=== PATIENT | female | born 1965 | race Caucasian/White ===

== ENCOUNTER 2017-09-18 19:38 | Inpatient (IN) | payer OTHER ==
--- NOTE | 2017-09-18 19:49 | PDOC ---
Rapid Medical Evaluation Medical Evaluation: 09/18/17 19:43 I have performed a brief in-person evaluation of this patient. The patient presents with a chief complaint of: hx DM, HTN, abd pain Pertinent physical exam findings: pain to R flank/abdomen x 1 month I have ordered the following: labs The patient will proceed to the ED for further evaluation. Discharge Disposition - Diagnosis Abdominal pain - Referrals Referrals: Evy Mendoza MD [Primary Care Provider] - - Patient Instructions - Post Discharge Activity
[2017-09-18 19:55] VITALS: BMI 29.2
--- NOTE | 2017-09-18 20:27 | PDOC ---
History of Present Illness - General History Source: Patient, Sibling Exam Limitations: No Limitations - History of Present Illness Initial Comments: 09/18/17 20:47 The patient is a 51 year old female, with a significant past medical history of hypertension, hyperlipidemia, diabetes, and chronic constipation, who presents to the emergency department with abdominal pain for approximately 1 month. The patient reports her pain is intermittent, diffuse, but worse at the right lower quadrant. She denies any associated nausea, vomiting, or diarrhea. Patient reports constipation, which is part of her baseline. Patient reports her last bowel movement was this morning, and describes it as "small dark latasha". Patient reports occasional blood in stool secondary to pushing when she is constipated. She reports occasional dysuria, but denies any hematuria, frequency , or urgency. She denies any recent fever, chills, cough, headache, or dizziness. She denies any chest pain, shortness of breath, diaphoresis, or palpitations. She denies any recent travel or sick contacts. Patient reports her last meal was this morning. As per sister, patient has lost a lot of weight over the past month. Allergies: NKDA Past Surgical History: section. Social History: Non smoker. No ETOH or recreational drug use. PCP: Dr. Garcia <Aditi Menjivar - Last Filed: 09/19/17 00:29> <Rosetta Gonzalez - Last Filed: 09/19/17 05:14> - General Chief Complaint: Pain Stated Complaint: ABD PAIN Time Seen by Provider: 09/18/17 19:54 Past History <Aditi Menjivar - Last Filed: 09/19/17 00:29> - Past Medical History COPD: No Diabetes: Yes GI Disorders: Yes (Constipation) HTN: Yes Hypercholesterolemia: Yes - Suicide/Smoking/Psychosocial Hx Smoking History: Never smoked Have you smoked in the past 12 months: No Information on smoking cessation initiated: No Hx Alcohol Use: No Drug/Substance Use Hx: No Substance Use Type: None <Rosetta Gonzalez - Last Filed: 09/19/17 05:14> - Past Medical History Allergies/Adverse Reactions: Allergies Allergy/AdvReac Type Severity Reaction Status Date / Time No Known Allergies Allergy Verified 09/18/17 19:50 Home Medications: Ambulatory Orders NK [No Known Home Medication] 09/18/17 Review of Systems - Review of Systems Able to Perform ROS?: Yes Comments:: 09/18/17 20:48 GENERAL/CONSTITUTIONAL: No fever or chills. No weakness. HEAD, EYES, EARS, NOSE AND THROAT: No change in vision. No ear pain or discharge. No sore throat. CARDIOVASCULAR: No chest pain or shortness of breath. RESPIRATORY: No cough, wheezing, or hemoptysis. GASTROINTESTINAL: +Abdominal pain, constipation. No nausea, vomiting, or diarrhea. GENITOURINARY: No dysuria, frequency, or change in urination. MUSCULOSKELETAL: No joint or muscle swelling or pain. No neck or back pain. SKIN: No rash NEUROLOGIC: No headache, vertigo, loss of consciousness, or change in strength/ sensation. ENDOCRINE: +Increased weightloss. No increased thirst. HEMATOLOGIC/LYMPHATIC: No anemia, easy bleeding, or history of blood clots. ALLERGIC/IMMUNOLOGIC: No hives or skin allergy. <Maggie Menjivaromilstraci - Last Filed: 09/19/17 00:29> *Physical Exam - Vital Signs Last Vital Signs Temp Pulse Resp BP Pulse Ox 98.0 F 93 H 18 167/96 99 09/18/17 19:50 09/18/17 19:50 09/18/17 19:50 09/18/17 19:50 09/18/17 19:50 - Physical Exam Comments: 09/18/17 20:50 GENERAL: Awake, alert, and fully oriented, in no acute distress HEAD: No signs of trauma EYES: PERRLA, EOMI, sclera anicteric, conjunctiva clear ENT: Auricles normal inspection, hearing grossly normal, nares patent, oropharynx clear without exudates. Moist mucosa NECK: Normal ROM, supple, no lymphadenopathy, JVD, or masses LUNGS: Breath sounds equal, clear to auscultation bilaterally. No wheezes, and no crackles HEART: Regular rate and rhythm, normal S1 and S2, no murmurs, rubs or gallops ABDOMEN: Soft, nontender, normoactive bowel sounds. No guarding, no rebound. No masses EXTREMITIES: Normal range of motion, no edema. No clubbing or cyanosis. No cords, erythema, or tenderness NEUROLOGICAL: Cranial nerves II through XII grossly intact. Normal speech, normal gait SKIN: +Slight Jaundice. Warm, Dry, normal turgor, no rashes or lesions noted. <OttoAditi - Last Filed: 09/19/17 00:29> - Vital Signs Last Vital Signs Temp Pulse Resp BP Pulse Ox 98.0 F 93 H 18 167/96 99 09/18/17 19:50 09/18/17 19:50 09/18/17 19:50 09/18/17 19:50 09/18/17 19:50 <Rosetta Gonzalez - Last Filed: 09/19/17 05:14> ED Treatment Course - LABORATORY CBC & Chemistry Diagram: 09/18/17 20:46 09/18/17 20:46 - RADIOLOGY Radiograph Interpretation: 09/19/17 00:22 EXAM: CT Abdomen and Pelvis INTERPRETED BY: Dr. Singer REVIEWED BY: Dr. Gonzalez IMPRESSION: Nonspecific enteritis and mesenteric adenitis. Cholelithiasis <MenjivarAditi - Last Filed: 09/19/17 00:29> - LABORATORY CBC & Chemistry Diagram: 09/18/17 20:46 09/18/17 20:46 <Rosetta Gonzalez - Last Filed: 09/19/17 05:14> Medical Decision Making - Medical Decision Making 09/19/17 00:27 Pt comes with on and off abd pain that has been ongoing for a month. Now with return of the pain since yesterday. Pain is deiffuse, but mainily right sided. Pt appears slight;y jaundiced, and she has anatoly discoloration of her lips which she says is normal for her. Pt states that she has been losing weight for the past month, and she has inability to eat due to the abdominal pain. CT scan demonstrates small bowel thickiening and mesenteric lymphadenopathy. Pt will be admitted for observation status to med/surg so that she can be evaluated by GI field operations supervisor. 09/19/17 03:31 Patient Name: JESSICA CARROLL THIS IS A PRELIMINARY REPORT FROM [facility] DATE OF SERVICE: 2017-09-18 22:48:48 IMAGES: 23 EXAM: TRANSVAGINAL ULTRASOUND US HISTORY: Right adnexal pain COMPARISON: None. FINDINGS: The uterus is retroverted measuring 7.9 cm in length. Endometrium is 3 mm which is normal. Right ovary measures 2.2 x 1.2 x 0.8 cm. Doppler imaging demonstrates positive vascular flow. The left ovary measures 2.3 x 1.2 x 1.4 cm. Doppler imaging demonstrates positive vascular flow. There is no adnexal mass There is a small amount of free fluid anterior to the uterus IMPRESSION: No ovarian torsion. Small amount of free fluid is nonspecific correlation with history and pelvic exam is recommended THIS DOCUMENT HAS BEEN ELECTRONICALLY SIGNED <Rosetta Gonzalez - Last Filed: 09/19/17 05:14> *DC/Admit/Observation/Transfer - Attestations Scribe Attestion: 09/18/17 20:50 Documentation prepared by Aditi Menjivar, acting as medical intern for oRsetta Gonzalez MD. <Aditi Menjivar - Last Filed: 09/19/17 00:29> - Discharge Dispostion Admit: Yes - Attestations Physician Attestion: 09/18/17 20:27 I, Dr. Rosetta Gonzalez, attest that this document has been prepared under my direction and personally reviewed by me in its entirety. I further attest, that it accurately reflects all work, treatment, procedures and medical decision -making performed by me. <Rosetta Gonzalez - Last Filed: 09/19/17 05:14> Diagnosis at time of Disposition: Abdominal pain, Weight loss, unintentional, Decreased appetite, Nonspecific mesenteric adenitis, Thickened small bowel, Hyperbilirubinemia, Alkaline phosphatase elevation - Discharge Dispostion Condition at time of disposition: Guarded - Referrals Referrals: Evy Mendoza MD [Primary Care Provider] - - Patient Instructions - Post Discharge Activity
[2017-09-18 21:09] LABS: BASO % 0.7 % (0-2.0); EOS % 2.3 % (0-4.5); HEMATOCRIT 44.4 % (32.4-45.2); HEMOGLOBIN 14.8 GM/dL (10.7-15.3); LYMPH % 55.6 % (8-40); MCH 28.6 pg (25.7-33.7); MCHC 33.5 g/dl (32.0-36.0); MEAN CELL VOLUME 85.3 fl (80-96); MONO % 4.9 % (3.8-10.2); NEUT % 36.5 % (42.8-82.8); PLATELET COUNT 254 K/MM3 (134-434); RDW 13.3 % (11.6-15.6); WHITE BLOOD COUNT 7.2 K/mm3 (4.0-10.0)
[2017-09-18 21:17] LABS: URINE APPEARANCE CLEAR; URINE BILIRUBIN NEGATIVE (NEGATIVE); URINE BLOOD 1+ (NEGATIVE); URINE COLOR YELLOW; URINE GLUCOSE (UA) 3+ (NEGATIVE); URINE KETONE TRACE (NEGATIVE); URINE LEUK ESTERASE NEGATIVE (NEGATIVE); URINE NITRITE NEGATIVE (NEGATIVE); URINE UROBILINOGEN NEGATIVE mg/dL (0.2-1.0)
[2017-09-18 21:23] LABS: URINE PROTEIN 1+ (NEGATIVE)
[2017-09-18 21:24] LABS: EPI CELLS RARE /HPF (FEW); URINE BACTERIA RARE /hpf (NONE SEEN); URINE HYALINE CAST 1 /lpf; URINE MUCUS FEW
[2017-09-18 21:31] LABS: ALBUMIN 4.4 g/dl (3.4-5.0); ANION GAP 8 (8-16); BILIRUBIN,TOTAL 1.1 mg/dL (0.2-1.0); BLOOD UREA NITROGEN 9 mg/dL (7-18); CALCIUM 9.3 mg/dL (8.5-10.1); CHLORIDE 101 mmol/L (98-107); CO2 25 mmol/L (21-32); CREATININE 0.7 mg/dL (0.55-1.02); GLUCOSE,RANDOM 289 mg/dL (74-106); POTASSIUM 3.9 mmol/L (3.5-5.1); SGOT/AST 16 U/L (15-37); SGPT/ALT 26 U/L (12-78); SODIUM 134 mmol/L (136-145); TOT PROT 8.3 g/dl (6.4-8.2)
[2017-09-18 21:32] LABS: ALK PHOS 173 U/L (45-117); INR 1.06 (0.82-1.09)
[2017-09-19] MEDS ORDERED: ACETAMINOPHEN 325 MG TABLET (FP) PO PRN (01:17)
[2017-09-19] MEDS ORDERED: SENNOSIDES 8.6MG TABLET (FP) PO PRN (01:17)
--- NOTE | 2017-09-19 01:28 | HP ---
CHIEF COMPLAINT: abdominal pain PCP: Dr. Matias HISTORY OF PRESENT ILLNESS: This is a 51 year old female with no known medical history presents to the emergency room with a dull mid epigastric pain that radiates to back that started yesterday and has progressively gotten worse, which provoked ER visit. She has chronic abdominal pain that she attributes to constipation and menstral cycle. She usually takes motrin for pain (chronically/intermittently), she has been taking 4-6 pills a day for the past two days. She denies fever, chills, nausea, vomiting, hematamesis, diarrhea, melena, urinary symptoms. Patient admits to some weight loss recently due to poor appetite. She had a half sister who at age 60 of colon CA. She has never had and endoscopy or colonoscopy. LMP Aug 31, spotting; lasting 2 months. ER course was notable for: (1)elevated alk phos; mild elevatd total bili; abdominal CT showing small bowel thickening; adenitits Recent Travel: no PAST MEDICAL HISTORY: no PAST SURGICAL HISTORY: no Social History: Smoking:no Alcohol:no Drugs: no Family History: DM; colon CA Allergies No Known Allergies Allergy (Verified 09/18/17 19:50) HOME MEDICATIONS: Home Medications Medication Instructions Recorded NK [No Known Home Medication] 09/18/17 REVIEW OF SYSTEMS CONSTITUTIONAL: positive: loss of appetite, weight change Absent: fever, chills, diaphoresis, generalized weakness, malaise, HEENT: Absent: rhinorrhea, nasal congestion, throat pain, throat swelling, difficulty swallowing, mouth swelling, ear pain, eye pain, visual changes CARDIOVASCULAR: Absent: chest pain, syncope, palpitations, irregular heart rate, lightheadedness , peripheral edema RESPIRATORY: Absent: cough, shortness of breath, dyspnea with exertion, orthopnea, wheezing, stridor, hemoptysis GASTROINTESTINAL: Positive:constipation; abdominal pain Absent: , nausea, vomiting, diarrhea, melena, hematochezia GENITOURINARY: Absent: dysuria, frequency, urgency, hesitancy, hematuria, flank pain, genital pain MUSCULOSKELETAL: Absent: myalgia, arthralgia, joint swelling, back pain, neck pain SKIN: Absent: rash, itching, pallor HEMATOLOGIC/IMMUNOLOGIC: Absent: easy bleeding, easy bruising, lymphadenopathy, frequent infections ENDOCRINE: Absent: unexplained weight gain, unexplained weight loss, heat intolerance, cold intolerance NEUROLOGIC: Absent: headache, focal weakness or paresthesias, dizziness, unsteady gait, seizure, mental status changes, bladder or bowel incontinence PSYCHIATRIC: Absent: anxiety, depression, suicidal or homicidal ideation, hallucinations. PHYSICAL EXAMINATION Vital Signs - 24 hr 09/18/17 19:50 Temperature 98.0 F Pulse Rate 93 H Respiratory 18 Rate Blood Pressure 167/96 O2 Sat by Pulse 99 Oximetry (%) GENERAL: Awake, alert, and fully oriented, in no acute distress. HEAD: Normal with no signs of trauma. EYES: Pupils equal, round and reactive to light, extraocular movements intact, sclera anicteric, conjunctiva clear. No lid lag. NECK: Normal range of motion, supple without lymphadenopathy, JVD, or masses. LUNGS: Breath sounds equal, clear to auscultation bilaterally. No wheezes, and no crackles. No accessory muscle use. HEART: Regular rate and rhythm, normal S1 and S2 without murmur, rub or gallop. ABDOMEN: Soft, tender mid epigastrum, not distended, normoactive bowel sounds, no guarding, no rebound, no masses. No hepatomegaly or splenomegaly. MUSCULOSKELETAL: Normal range of motion at all joints. No bony deformities or tenderness. No CVA tenderness. UPPER EXTREMITIES: 2+ pulses, warm, well-perfused. No cyanosis. No clubbing. No peripheral edema. LOWER EXTREMITIES: 2+ pulses, warm, well-perfused. No calf tenderness. No peripheral edema. NEUROLOGICAL: Cranial nerves II-XII intact. Normal speech. Normal gait. PSYCHIATRIC: Cooperative. Good eye contact. Appropriate mood and affect. SKIN: Warm, dry, normal turgor, no rashes or lesions noted, normal capillary refill. Laboratory Results - last 24 hr 09/18/17 09/18/17 09/18/17 20:46 20:46 20:46 WBC 7.2 RBC 5.20 Hgb 14.8 Hct 44.4 MCV 85.3 MCH 28.6 MCHC 33.5 RDW 13.3 Plt Count 254 MPV 9.0 Neutrophils % 36.5 L Lymphocytes % 55.6 H Monocytes % 4.9 Eosinophils % 2.3 Basophils % 0.7 PT with INR 12.00 H INR 1.06 Sodium Potassium Chloride Carbon Dioxide Anion Gap BUN Creatinine Creat Clearance w eGFR Random Glucose Calcium Total Bilirubin AST ALT Alkaline Phosphatase Total Protein Albumin Urine Color Yellow Urine Appearance Clear Urine pH 5.0 Ur Specific [place] 1.032 Urine Protein 1+ H Urine Glucose (UA) 3+ H Urine Ketones Trace H Urine Blood 1+ H Urine Nitrite Negative Urine Bilirubin Negative Urine Urobilinogen Negative Ur Leukocyte Esterase Negative Urine WBC (Auto) 3 Urine RBC (Auto) 3 Ur Epithelial Cells Rare Urine Bacteria Rare Hyaline Casts 1 Urine Mucus Few 09/18/17 20:46 WBC RBC Hgb Hct MCV MCH MCHC RDW Plt Count MPV Neutrophils % Lymphocytes % Monocytes % Eosinophils % Basophils % PT with INR INR Sodium 134 L Potassium 3.9 Chloride 101 Carbon Dioxide 25 Anion Gap 8 BUN 9 Creatinine 0.7 Creat Clearance w eGFR > 60 Random Glucose 289 H Calcium 9.3 Total Bilirubin 1.1 H AST 16 ALT 26 Alkaline Phosphatase 173 H Total Protein 8.3 H Albumin 4.4 Urine Color Urine Appearance Urine pH Ur Specific [place] Urine Protein Urine Glucose (UA) Urine Ketones Urine Blood Urine Nitrite Urine Bilirubin Urine Urobilinogen Ur Leukocyte Esterase Urine WBC (Auto) Urine RBC (Auto) Ur Epithelial Cells Urine Bacteria Hyaline Casts Urine Mucus ASSESSMENT/PLAN: This is a 51 year old female with no known medical history presenting with abdominal pain x 2day with wt loss; nsaid use; will admit for observation, pending GI eval for possible scope. Possible etiology as listed below. #abdominal pain may be secondary to gastritis vs ulcer (nsaid use) vs constipation vs gerd; r/o other etiology including Colon CA given family history /wt loss/age -abdominal CT with small bowel thickening and adenitis -IVF -PPI -heme occult -anti nausea med prn -stool softener -avoid NSAIDs -keep npo for now; pending GI rec for possible endoscopy/colonoscopy -f/u pelvic/vag US report; r/o RING SORTER etiology #mild elevation ofalkphos; with normal LFTs; making liver injury unlikely; possible from bone vs parathyroid; -will trend; if continues to rise will order more studies #total bili slightly elevated; could be sec to gallstones; will trend ; if continues will order direct/indirect #hyperglycemia; r/o DM -insulin SS -BGM achs check heomglobin a1c ; not on any DM meds #constipation: -stool softeners/mirolax Fluids: NS Electrolytes: wnl Diet: keep npo for now pending GI consult/scope VTE: scds GI ppl: protonix Case discussed with attending Dr. Nerissa Boyce-pgy2 Problem List - Problem (1) Abdominal pain Code(s): R10.9 - UNSPECIFIED ABDOMINAL PAIN (2) Alkaline phosphatase elevation Code(s): R74.8 - ABNORMAL LEVELS OF OTHER SERUM ENZYMES (3) Decreased appetite Code(s): R63.0 - ANOREXIA (4) Hyperbilirubinemia Code(s): E80.6 - OTHER DISORDERS OF BILIRUBIN METABOLISM (5) Nonspecific mesenteric adenitis Code(s): I88.0 - NONSPECIFIC MESENTERIC LYMPHADENITIS (6) Thickened small bowel Code(s): K63.9 - DISEASE OF INTESTINE, UNSPECIFIED Visit type - Emergency Visit Emergency Visit: Yes Care time: The patient presented to the Emergency Department on the above date and was hospitalized for further evaluation of their emergent condition. - New Patient This patient is new to me today: Yes Date on this admission: 09/19/17 - Critical Care Critical Care patient: No Hospitalist Screening - Colonoscopy Questionnaire Colonoscopy Questionnaire: Colonoscopy Questionnaire - Patient: 50 - 75 years old and never had a screening colonoscopy: Yes History of colon or rectal polyps, or CA: No History of IBD, Crohn's disease or UC: No History of abdominal radiation therapy as a child: No - Relative: 1 with colon or rectal CA, or polyps at age 60 or younger: Yes Colon or rectal CA diagnosed at age 45 or younger: Unknown Multiple relatives with colon or rectal CA: No - Outcome: Screening Result: Positive Screen
[2017-09-19] MEDS: SODIUM CHLORIDE 1,000 ML IV SCH ×3 (01:41→14:14)
[2017-09-19] MEDS: INSULIN SLIDING SCALE (NOVOLOG) 1 VIAL SQ SCH ×4 (06:42→22:24)
[2017-09-19] MEDS: POLYETHYLENE GLYCOL 3350 119 GM BTL PO SCH ×3 (10:35→21:53)
[2017-09-19] MEDS: PANTOPRAZOLE 40 MG TABLET (FP) PO SCH (10:36)
[2017-09-19] MEDS ORDERED: INSULIN (NOVOLOG) ASPART 100 UNITS/ML 10ML VIAL ONE (11:19)
--- NOTE | 2017-09-19 12:39 | CON.GI ---
Consult Consult Specialty:: Gastroenterology Referred by:: Dr. Fang Boyce Reason for Consultation:: Abd pain - History of Present Illness Chief Complaint: RUQ lateral pain x 1 month with 25 lbs weight loss History of Present Illness: 51F Liberian speaking is admitted for a constant lateral RUQ pain that is alleviated by eating and by defecation. She denies vomiting or loss of appetite but claims a 25 lbs. weight loss. Her nephew Marvin Snell served as historic interpreter. She denies loss of appetite and is hungry. Although she moves her bowels daily she has a sense of bloating and incomplete evacuation. Her [facility] has been advising a colonoscopy but she has been refractory to this. Her mother is a colon cancer survivor. - History Source History Provided By: Patient Limitations to Obtaining History: Language Barrier - Past Medical History Cardio/Vascular: Yes: HTN, Hyperlipdemia Gastrointestinal: Yes: Constipation Endocrine: Yes: Diabetes Mellitus - Past Surgical History Past Surgical History: Yes: - Alcohol/Substance Use Hx Alcohol Use: Yes (on holidays) - Smoking History Smoking history: Never smoked Have you smoked in the past 12 months: No - Social History Usual Living Arrangement: Alone ADL: Independent Occupation: not employed Place of : Other ([place]) Came to [place]year[place] age 44 History of Recent Travel: No Home Medications - Allergies Allergies/Adverse Reactions: Allergies Allergy/AdvReac Type Severity Reaction Status Date / Time No Known Allergies Allergy Verified 09/18/17 19:50 - Home Medications Home Medications: Ambulatory Orders Atorvastatin Ca [Lipitor] 40 mg PO HS 09/19/17 Insulin Glargine,Hum.rec.anlog [Basaglar Kwikpen U-100] 22 unit SQ BID 09/19/17 Losartan Potassium 25 mg PO DAILY 09/19/17 Metformin HCl [Glucophage] 1,000 mg PO BID 09/19/17 Family Disease History - Family Disease History Family Disease History: Diabetes: Mother (alive 89, colon cancer survivor), Heart Disease: Father ( [place] young age), Mother, CA: Mother Other Family History: aunt had ovarian cancer Review of Systems - Review of Systems Constitutional: reports: Unintentional Wgt. Loss Eyes: reports: No Symptoms HENT: reports: No Symptoms Cardiovascular: reports: No Symptoms Respiratory: reports: No Symptoms Gastrointestinal: reports: Abdominal Pain, Constipation Genitourinary: reports: No Symptoms Musculoskeletal: reports: No Symptoms Integumentary: reports: No Symptoms Neurological: reports: No Symptoms Endocrine: reports: No Symptoms Physical Exam-GI Vital Signs: Vital Signs Temperature 98 F 09/19/17 06:54 Pulse Rate 82 09/19/17 06:54 Respiratory Rate 20 09/19/17 06:54 Blood Pressure 134/75 09/19/17 06:54 O2 Sat by Pulse Oximetry (%) 97 09/19/17 06:23 Laboratory Tests 09/18/17 09/18/17 20:46 20:46 Hgb 14.8 BUN 9 Creatinine 0.7 Total Bilirubin 1.1 H AST 16 ALT 26 Alkaline Phosphatase 173 H Albumin 4.4 Constitutional: Yes: Well Nourished Eyes: Yes: Conjunctiva Clear HENT: Yes: Other (dusky interior lip rimming but nares are clear of black exudate) Neck: Yes: Supple Cardiovascular: Yes: Regular Rate and Rhythm Respiratory: Yes: CTA Bilaterally Gastrointestinal Inspection: Yes: Distention, Scars (healed Pfannensteil incision) ...Auscultate: Yes: Hypoactive Bowel Sounds ...Palpate: Yes: Other (RUQ and lateral lower subcostal tenderness) ...Percussion: Yes: Tympanitic ...Rectal Exam: Yes: Sphincter Tone Normal, Other (no stool in rectum) Extremities: Yes: WNL Edema: No Neurological: Yes: Alert Labs: CBC, BMP 09/18/17 20:46 09/18/17 20:46 INR, PTT INR 1.06 (0.82-1.09) 09/18/17 20:46 Imaging - Results Cat Scan: Report Reviewed (Kaden Suh Name: JESSICA CARROLL DEPARTMENT OF RADIOLOGY Phys: Rosetta Gonzalez MD : 1965 Age: 51 Sex: F [facility] Acct: [id number] [facility] Exam Date: 09/18/17 Status: [place] [address] Unit Number: [id number] EXAM#: TYPE/EXAM: RESULT: [id number] CT/ABDOMEN PELVIS CT WITH CONTR History: Abdominal pain CT Scan of abdomen and pelvis without oral but with IV contrast 94 cc Omnipaque 350 The liver, spleen, pancreas and adrenal glands are unremarkable. No gallstones are identified. There is no evidence of retroperitoneal lymphadenopathy or abdominal aortic aneurysm. A significant amount of retained stool is seen throughout colon. There is residual foodstuff seen throughout stomach. Nonspecific mild thickening of proximal small bowel mercado The urinary bladder and uterus are unremarkable. There is no evidence of bowel obstruction. There are no inflammatory changes of the appendix or colon. No fluid collections are identified. Impression: Possible proximal enteritis PRELIMINARY REPORT PROVIDED BY RADIOLOGIST LABORER DRIVER Reported By: Mamadou Dougherty MD 09/19/17 1140 Technologist: Sukumar Hou Transcribed Date/Time: 09/19/17 1140 Head Rigger: Mamadou Dougherty Printed Date/Time: By: Signed by: Mamadou Dougherty Signed on: 19-Sep-2017 11:42) Problem List - Problems (1) Abdominal pain Assessment/Plan: I believe that Jessica's pain is due to colon distension/fecal impaction. Given her weight loss, FH colon cancer and lack of stool in the rectum I am concerned that she may have an obstructing rectosigmoid neoplasm. I will start Miralax lavage and order a gastrograffin enema. Via her nephew I did tell her that she will most likely need a colonoscopy and that Dr Worley will return on Thursday and be able to discuss it with her after the GG enema. I asked him to notify her siblings of the need for colon cancer screening. Code(s): R10.9 - UNSPECIFIED ABDOMINAL PAIN (2) Fecal impaction of colon Code(s): K56.41 - FECAL IMPACTION (3) Diabetes Code(s): E11.9 - TYPE 2 DIABETES MELLITUS WITHOUT COMPLICATIONS (4) Family history of colon cancer in mother Code(s): Z80.0 - FAMILY HISTORY OF MALIGNANT NEOPLASM OF DIGESTIVE ORGANS (5) Hypertension Code(s): I10 - ESSENTIAL (PRIMARY) HYPERTENSION (6) Hyperlipidemia associated with type 2 diabetes mellitus Code(s): E11.69 - TYPE 2 DIABETES MELLITUS WITH OTHER SPECIFIED COMPLICATION; E78.5 - HYPERLIPIDEMIA, UNSPECIFIED (7) Weight loss, unintentional Code(s): R63.4 - ABNORMAL WEIGHT LOSS
--- NOTE | 2017-09-19 15:23 | HOSP ---
Subjective - Review of Symptoms Subjective: Pt evaluated at bedside with son present who acted as principal clerk Pain has resolved. Pain typically improves with eating. Last BM was a small hard amount yesterday morning. reports increase hunger over the past month however has had a 25lb weight loss. denies CP, SOB< fever, chills, N/V/C/D never had colonoscopy Current Medications Generic Name Dose Route Start Last Admin Trade Name Freq PRN Reason Stop Dose Admin Acetaminophen 650 mg 09/19/17 01:17 Tylenol - PO Q4H PRN MILD PAIN Sodium Chloride 1,000 mls @ 75 mls/hr 09/19/17 13:30 09/19/17 14:14 Normal Saline - IV 75 mls/hr ASDIR JOSSY Administration Insulin Aspart 1 vial 09/19/17 07:00 09/19/17 14:15 Novolog Vial Sliding Scale - SQ 8 units ACHS JOSSY Administration Protocol Pantoprazole Sodium 40 mg 09/19/17 10:00 09/19/17 10:36 Protonix - PO 40 mg DAILY JOSSY Administration Polyethylene Glycol 17 gm 09/19/17 10:00 09/19/17 10:35 Miralax (For Daily Use) - PO Not Given DAILY JOSSY Polyethylene Glycol 17 gm 09/19/17 14:00 09/19/17 14:13 Miralax (For Daily Use) - PO 17 grams TID JOSSY Administration Senna 2 tab 09/19/17 01:17 Senna - PO HS PRN CONSTIPATION Last Vital Signs Temp Pulse Resp BP Pulse Ox 98.7 F 68 20 120/70 97 09/19/17 14:38 09/19/17 14:38 09/19/17 14:38 09/19/17 14:38 09/19/17 06:23 General NAD CV S1 S2 RRR no murmur/rub/gallop Lungs CTA B/L no wheezing/rales/rhonchi Abdomen soft slightly distended nomroactive BS. obese Extremtiies no pedal edema CBCD WBC 7.2 K/mm3 (4.0-10.0) 09/18/17 20:46 RBC 5.20 M/mm3 (3.60-5.2) 09/18/17 20:46 Hgb 14.8 GM/dL (10.7-15.3) 09/18/17 20:46 Hct 44.4 % (32.4-45.2) 09/18/17 20:46 MCV 85.3 fl (80-96) 09/18/17 20:46 MCHC 33.5 g/dl (32.0-36.0) 09/18/17 20:46 RDW 13.3 % (11.6-15.6) 09/18/17 20:46 Plt Count 254 K/MM3 (134-434) 09/18/17 20:46 MPV 9.0 fl (7.5-11.1) 09/18/17 20:46 CMP Sodium 134 mmol/L (136-145) L 09/18/17 20:46 Potassium 3.9 mmol/L (3.5-5.1) 09/18/17 20:46 Chloride 101 mmol/L (98-107) 09/18/17 20:46 Carbon Dioxide 25 mmol/L (21-32) 09/18/17 20:46 Anion Gap 8 (8-16) 09/18/17 20:46 BUN 9 mg/dL (7-18) 09/18/17 20:46 Creatinine 0.7 mg/dL (0.55-1.02) 09/18/17 20:46 Creat Clearance w eGFR > 60 (>60) 09/18/17 20:46 Calcium 9.3 mg/dL (8.5-10.1) 09/18/17 20:46 Total Bilirubin 1.1 mg/dL (0.2-1.0) H 09/18/17 20:46 AST 16 U/L (15-37) 09/18/17 20:46 ALT 26 U/L (12-78) 09/18/17 20:46 Alkaline Phosphatase 173 U/L (45-117) H 09/18/17 20:46 Total Protein 8.3 g/dl (6.4-8.2) H 09/18/17 20:46 Albumin 4.4 g/dl (3.4-5.0) 09/18/17 20:46 A/P 51 yo F wtih no PMH but family hx significant for colon ca present wtih abdominal pain, distention and weight loss 1. Abdominal pain- +fecal retention seen on CT scan. evalauted by GI started on clear liquids and miralax. Plan for barium enema to further evaluate for malignancy. plan for eventual colonosocpy. f/u [facility] 2. case d/w son present at bedside. all questions answered. Physical Examination Vital Signs: Vital Signs Temperature 98.7 F 09/19/17 14:38 Pulse Rate 68 09/19/17 14:38 Respiratory Rate 20 09/19/17 14:38 Blood Pressure 120/70 09/19/17 14:38 O2 Sat by Pulse Oximetry (%) 97 09/19/17 06:23 Labs: CBC, BMP 09/18/17 20:46 09/18/17 20:46
[2017-09-20] MEDS: INSULIN SLIDING SCALE (NOVOLOG) 1 VIAL SQ SCH ×4 (06:06→21:33)
[2017-09-20] MEDS: POLYETHYLENE GLYCOL 3350 119 GM BTL PO SCH ×4 (06:07→21:36)
[2017-09-20 07:47] LABS: BASO % 0.5 % (0-2.0); EOS % 3.6 % (0-4.5); HEMATOCRIT 40.3 % (32.4-45.2); HEMOGLOBIN 13.2 GM/dL (10.7-15.3); LYMPH % 44.5 % (8-40); MCH 27.9 pg (25.7-33.7); MCHC 32.7 g/dl (32.0-36.0); MEAN CELL VOLUME 85.1 fl (80-96); MEAN PLT VOLUME 8.7 fl (7.5-11.1); MONO % 4.5 % (3.8-10.2); NEUT % 46.9 % (42.8-82.8); PLATELET COUNT 215 K/MM3 (134-434); RBC 4.73 M/mm3 (3.60-5.2); RDW 13.2 % (11.6-15.6); WHITE BLOOD COUNT 5.8 K/mm3 (4.0-10.0)
[2017-09-20 07:53] LABS: INR 1.15 (0.82-1.09)
[2017-09-20 08:11] LABS: CHLORIDE 107 mmol/L (98-107); POTASSIUM 3.9 mmol/L (3.5-5.1); SODIUM 141 mmol/L (136-145)
[2017-09-20 08:20] LABS: ALBUMIN 3.3 g/dl (3.4-5.0); ALK PHOS 108 U/L (45-117); ANION GAP 8 (8-16); BILIRUBIN,TOTAL 1.4 mg/dL (0.2-1.0); BLOOD UREA NITROGEN 8 mg/dL (7-18); CALCIUM 8.4 mg/dL (8.5-10.1); CO2 26 mmol/L (21-32); CREATININE 0.5 mg/dL (0.55-1.02); GLUCOSE,RANDOM 153 mg/dL (74-106); PHOSPHOROUS 4.3 mg/dL (2.5-4.9); SGOT/AST 21 U/L (15-37); SGPT/ALT 24 U/L (12-78); TOT PROT 6.4 g/dl (6.4-8.2)
--- NOTE | 2017-09-20 09:42 | PN ---
Teaching Attending Note Name of Resident: Enrrique Toney ATTENDING PHYSICIAN STATEMENT I saw and evaluated the patient. I reviewed the resident's note and discussed the case with the resident. I agree with the resident's findings and plan as documented. SUBJECTIVE:states abdominal pain has improved. has 1 very large BM yesterday and a small one prior to bedtime. denies CP, SOB, fever, chills, N/V/ OBJECTIVE: Last Vital Signs Temp Pulse Resp BP Pulse Ox 97.8 F 76 18 109/63 98 09/20/17 05:21 09/20/17 05:21 09/20/17 05:21 09/20/17 05:21 09/20/17 01:00 General NAD Abdomen soft RLQ tenderness no rebound or guarding normoactive BS ASSESSMENT AND PLAN: 51 yo F wtih no PMH but family hx significant for colon ca present wtih abdominal pain, distention and weight loss 1. Abdominal pain- +fecal retention seen on CT scan. started on stool softeners and miralax. cont to monitor BM. tolerating clear liquid diet. plan for barium enema. GI on board 2. DM- uncontrolled. A1c 12.6. claims she is taking medications but reports 150' s BGM at home. concerned meter may be inaccurate. was taking insulin at home ( not on home med list) 22 units BID. will start 10 BID for now as eating minimal. titrate to optimize control. dietary eval 3. HTN- controlled. cont to hold home medications. 4. DVT ppx- start hep sq 5. case d/w sister present at bedside. all questions answered. verbalized understanding and agreement with plan.
[2017-09-20] MEDS: PANTOPRAZOLE 40 MG TABLET (FP) PO SCH (10:29)
[2017-09-20] MEDS ORDERED: INSULIN (NOVOLOG) ASPART 100 UNITS/ML 10ML VIAL ONE ×2 (12:30→16:58)
--- NOTE | 2017-09-20 13:54 | PN ---
Physical Exam: SUBJECTIVE: Patient seen and examined at bedside. No overnight events. No new complaints. States she had a small hard BM this morning. NO blood.abdominal pain is better but no resolved. Denies CP,LENZ, SOB, nausea or vomiting. OBJECTIVE: Vital Signs Period Temp Pulse Resp BP Sys/Weaver Pulse Ox Last 24 Hr 97.5 F-98.7 F 62-78 18-20 109-128/57-77 98-98 GENERAL:AAOx3, NAD LUNGS: CTAB, No wheezing or rales. HEART: RRR, S1, S2 without murmur, rub or gallop. ABDOMEN: Soft, diffuse right sided tenderness. hard stools palpated in RLQ, nondistended, normoactive bowel sounds, no guarding, no rebound, no hepatosplenomegaly, no masses. EXTREMITIES: 2+ pulses, warm, well-perfused, no edema. Laboratory Results - last 24 hr 09/19/17 09/19/17 09/20/17 17:06 21:52 06:00 WBC 5.8 RBC 4.73 Hgb 13.2 D Hct 40.3 MCV 85.1 MCH 27.9 MCHC 32.7 RDW 13.2 Plt Count 215 MPV 8.7 Neutrophils % 46.9 D Lymphocytes % 44.5 H Monocytes % 4.5 Eosinophils % 3.6 Basophils % 0.5 PT with INR INR Sodium Potassium Chloride Carbon Dioxide Anion Gap BUN Creatinine Creat Clearance w eGFR POC Glucometer 306 124 Random Glucose Hemoglobin A1c % Calcium Phosphorus Magnesium Total Bilirubin AST ALT Alkaline Phosphatase C-Reactive Protein Total Protein Albumin 09/20/17 09/20/17 09/20/17 06:00 06:00 06:00 WBC RBC Hgb Hct MCV MCH MCHC RDW Plt Count MPV Neutrophils % Lymphocytes % Monocytes % Eosinophils % Basophils % PT with INR 13.00 H INR 1.15 H Sodium 141 Potassium 3.9 Chloride 107 Carbon Dioxide 26 Anion Gap 8 BUN 8 Creatinine 0.5 L Creat Clearance w eGFR > 60 POC Glucometer Random Glucose 153 H Hemoglobin A1c % Calcium 8.4 L Phosphorus 4.3 Magnesium 2.0 Total Bilirubin 1.4 H D AST 21 ALT 24 Alkaline Phosphatase 108 C-Reactive Protein < 0.3 Total Protein 6.4 Albumin 3.3 L 09/20/17 09/20/17 09/20/17 06:05 08:30 11:47 WBC RBC Hgb Hct MCV MCH MCHC RDW Plt Count MPV Neutrophils % Lymphocytes % Monocytes % Eosinophils % Basophils % PT with INR INR Sodium Potassium Chloride Carbon Dioxide Anion Gap BUN Creatinine Creat Clearance w eGFR POC Glucometer 155 313 Random Glucose Hemoglobin A1c % 12.6 H Calcium Phosphorus Magnesium Total Bilirubin AST ALT Alkaline Phosphatase C-Reactive Protein Total Protein Albumin Active Medications Generic Name Dose Route Start Last Admin Trade Name Freq PRN Reason Stop Dose Admin Acetaminophen 650 mg 09/19/17 01:17 09/20/17 10:34 Tylenol - PO 650 mg Q4H PRN Administration MILD PAIN Docusate Sodium 300 mg 09/20/17 22:00 Colace - PO HS JOSSY Heparin Sodium (Porcine) 5,000 unit 09/20/17 22:00 Heparin - SQ BID JOSSY Sodium Chloride 1,000 mls @ 75 mls/hr 09/19/17 13:30 09/19/17 14:14 Normal Saline - IV 75 mls/hr ASDIR JOSSY Administration Insulin Aspart 1 vial 09/19/17 07:00 09/20/17 12:55 Novolog Vial Sliding Scale - SQ 8 units ACHS JOSSY Administration Protocol Pantoprazole Sodium 40 mg 09/19/17 10:00 09/20/17 10:29 Protonix - PO 40 mg DAILY JOSSY Administration Polyethylene Glycol 17 gm 09/19/17 10:00 09/20/17 10:29 Miralax (For Daily Use) - PO 17 grams DAILY JOSSY Administration Polyethylene Glycol 17 gm 09/19/17 14:00 09/20/17 12:59 Miralax (For Daily Use) - PO 17 grams TID JOSSY Administration Senna 2 tab 09/20/17 22:00 Senna - PO HS JOSSY ASSESSMENT/PLAN: This is a 51 year old female with no known medical history presenting with abdominal pain x 2day with wt loss admitted for severe fecal retention and intractable abdominal pain. 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 * Docusate Sodium (Colace -) 300 mg PO HS * Sodium Chloride (Normal Saline -) 1,000 mls @ 75 mls/hr IV ASDIR * Pantoprazole Sodium (Protonix -) 40 mg PO DAILY * Polyethylene Glycol (Miralax (For Daily Use) -) 17 gm PO TID * Senna (Senna -) 2 tab PO HS JOSSY (2) Fecal impaction of colon Assessment/Plan: concern for possible malignancy given family history of Colon CA. * Gastrografin enema tomorrow. * Needs a colonoscopy prior to discharge. * Gastroenterology consult appreciated. (3) Diabetes Assessment/Plan: uncontrolled * ADA diet * ISS ACHS * BGM ACHS * HgbA1C- 12.6 (4) Hypertension Assessment/Plan: BP has been wnl * BP meds on hold for now. (5) DVT prophylaxis Assessment/Plan: heparin sq TID Visit type - Emergency Visit Emergency Visit: Yes ED Registration Date: 09/19/17 Care time: The patient presented to the Emergency Department on the above date and was hospitalized for further evaluation of their emergent condition. - New Patient This patient is new to me today: Yes Date on this admission: 09/20/17 - Critical Care Critical Care patient: No - Discharge Referral Referred to [facility] Med P.C.: No
--- NOTE | 2017-09-20 15:22 | PN ---
GI Progress Note Subjective: GI NOte ( covering Dr Worley) : Passing gas but no BMs yet. Pain is reduced - Objective Vital Signs: Vital Signs Temperature 97.8 F 09/20/17 15:08 Pulse Rate 78 09/20/17 15:08 Respiratory Rate 20 09/20/17 15:08 Blood Pressure 121/77 09/20/17 15:08 O2 Sat by Pulse Oximetry (%) 98 09/20/17 09:00 Constitutional: No Distress Gastrointestinal Inspection: Yes: Other (less distended) ...Auscultate: Yes: Hypoactive Bowel Sounds ...Palpate: Yes: Soft, Other (nontender) Labs: CBC, BMP 09/20/17 06:00 09/20/17 06:00 INR, PTT INR 1.15 (0.82-1.09) H 09/20/17 06:00 Assessment/Plan Fecal impaction Need to exclude obstructing colon cancer For GG enema tomorrow Dr Worley will return tomorrow and assume care for this patient. Problem List - Problems (1) Abdominal pain Code(s): R10.9 - UNSPECIFIED ABDOMINAL PAIN (2) Fecal impaction of colon Code(s): K56.41 - FECAL IMPACTION (3) Diabetes Code(s): E11.9 - TYPE 2 DIABETES MELLITUS WITHOUT COMPLICATIONS (4) Family history of colon cancer in mother Code(s): Z80.0 - FAMILY HISTORY OF MALIGNANT NEOPLASM OF DIGESTIVE ORGANS (5) Hypertension Code(s): I10 - ESSENTIAL (PRIMARY) HYPERTENSION (6) Hyperlipidemia associated with type 2 diabetes mellitus Code(s): E11.69 - TYPE 2 DIABETES MELLITUS WITH OTHER SPECIFIED COMPLICATION; E78.5 - HYPERLIPIDEMIA, UNSPECIFIED (7) Weight loss, unintentional Code(s): R63.4 - ABNORMAL WEIGHT LOSS
[2017-09-20] MEDS: SODIUM CHLORIDE 1,000 ML IV SCH (17:02)
[2017-09-20] MEDS: INSULIN DETEMIR 100 UNITS/ML MDV SQ SCH (17:02)
[2017-09-20] MEDS: DOCUSATE SODIUM 100 MG CAPSULE (FP) PO SCH (21:33)
[2017-09-20] MEDS: SENNOSIDES 8.6MG TABLET (FP) PO SCH (21:33)
[2017-09-20] MEDS: HEPARIN NA (PORCINE) 5,000 UNITS/ML 1ML VIAL SQ SCH (21:36)
[2017-09-21] MEDS: SODIUM CHLORIDE 1,000 ML IV SCH ×2 (06:21→17:15)
[2017-09-21] MEDS: INSULIN SLIDING SCALE (NOVOLOG) 1 VIAL SQ SCH ×4 (06:22→21:47)
[2017-09-21] MEDS: POLYETHYLENE GLYCOL 3350 119 GM BTL PO SCH ×4 (06:22→21:46)
[2017-09-21] MEDS: INSULIN DETEMIR 100 UNITS/ML MDV SQ SCH ×2 (06:24→16:58)
[2017-09-21 08:03] LABS: BASO % 0.5 % (0-2.0); HEMATOCRIT 44.8 % (32.4-45.2); HEMOGLOBIN 14.5 GM/dL (10.7-15.3); LYMPH % 50.3 % (8-40); MCHC 32.4 g/dl (32.0-36.0); MEAN CELL VOLUME 86.3 fl (80-96); MEAN PLT VOLUME 8.7 fl (7.5-11.1); MONO % 4.8 % (3.8-10.2); NEUT % 41.4 % (42.8-82.8); PLATELET COUNT 268 K/MM3 (134-434); RBC 5.19 M/mm3 (3.60-5.2); RDW 13.5 % (11.6-15.6); WHITE BLOOD COUNT 7.3 K/mm3 (4.0-10.0)
[2017-09-21 08:34] LABS: ALBUMIN 3.8 g/dl (3.4-5.0); ANION GAP 12 (8-16); BLOOD UREA NITROGEN 6 mg/dL (7-18); CALCIUM 9.5 mg/dL (8.5-10.1); CHLORIDE 102 mmol/L (98-107); CO2 27 mmol/L (21-32); GLUCOSE,RANDOM 125 mg/dL (74-106); POTASSIUM 3.8 mmol/L (3.5-5.1); SODIUM 141 mmol/L (136-145)
[2017-09-21 08:37] LABS: ALK PHOS 126 U/L (45-117); BILIRUBIN,TOTAL 1.3 mg/dL (0.2-1.0); CREATININE 0.6 mg/dL (0.55-1.02); SGOT/AST 22 U/L (15-37); SGPT/ALT 33 U/L (12-78); TOT PROT 7.8 g/dl (6.4-8.2)
[2017-09-21] MEDS: HEPARIN NA (PORCINE) 5,000 UNITS/ML 1ML VIAL SQ SCH ×2 (09:53→21:47)
[2017-09-21] MEDS: PANTOPRAZOLE 40 MG TABLET (FP) PO SCH (09:53)
[2017-09-21] MEDS ORDERED: INSULIN (NOVOLOG) ASPART 100 UNITS/ML 10ML VIAL ONE (11:47)
--- NOTE | 2017-09-21 13:38 | PN ---
Progress Note, Physician History of Present Illness: Chart reviewed. No events overnight. Ambulating. Comfortable. Reports multiple bms. Requires repairer pump. - Current Medication List Current Medications: Active Medications Acetaminophen (Tylenol -) 650 mg PO Q4H PRN PRN Reason: MILD PAIN Last Admin: 09/20/17 10:34 Dose: 650 mg Docusate Sodium (Colace -) 300 mg PO HS [facility] Last Admin: 09/20/17 21:33 Dose: 300 mg Heparin Sodium (Porcine) (Heparin -) 5,000 unit SQ BID [facility] Last Admin: 09/21/17 09:53 Dose: 5,000 unit Sodium Chloride (Normal Saline -) 1,000 mls @ 75 mls/hr IV ASDIR [facility] Last Admin: 09/21/17 06:21 Dose: 75 mls/hr Insulin Aspart (Novolog Vial Sliding Scale -) 1 vial SQ ACHS [facility] PRN Reason: Protocol Last Admin: 09/21/17 11:51 Dose: 4 units Insulin Detemir (Levemir Vial) 10 units SQ BIDAC [facility] Last Admin: 09/21/17 06:24 Dose: 10 units Pantoprazole Sodium (Protonix -) 40 mg PO DAILY [facility] Last Admin: 09/21/17 09:53 Dose: 40 mg Polyethylene Glycol (Miralax (For Daily Use) -) 17 gm PO DAILY [facility] Last Admin: 09/21/17 09:53 Dose: 17 grams Polyethylene Glycol (Miralax (For Daily Use) -) 17 gm PO TID [facility] Last Admin: 09/21/17 06:22 Dose: 17 grams Senna (Senna -) 2 tab PO HS [facility] Last Admin: 09/20/17 21:33 Dose: 2 tab - Objective Vital Signs: Vital Signs Temperature 98 F 09/21/17 10:00 Pulse Rate 67 09/21/17 10:00 Respiratory Rate 18 09/21/17 10:00 Blood Pressure 123/81 09/21/17 10:00 O2 Sat by Pulse Oximetry (%) 99 09/21/17 09:00 Constitutional: Yes: Well Nourished, No Distress, Calm Eyes: Yes: Conjunctiva Clear HENT: Yes: Atraumatic Neck: Yes: Supple Cardiovascular: Yes: Regular Rate and Rhythm Respiratory: Yes: Regular Gastrointestinal: Yes: Soft, Distention. No: Tenderness, Tenderness, Epigastrium, Tenderness, Rebound, Vomiting Neurological: Yes: Alert Labs: CBC, BMP 09/21/17 06:30 09/21/17 08:15 INR, PTT INR 1.15 (0.82-1.09) H 09/20/17 06:00 CBCD WBC 7.3 K/mm3 (4.0-10.0) 09/21/17 06:30 RBC 5.19 M/mm3 (3.60-5.2) 09/21/17 06:30 Hgb 14.5 GM/dL (10.7-15.3) 09/21/17 06:30 Hct 44.8 % (32.4-45.2) 09/21/17 06:30 MCV 86.3 fl (80-96) 09/21/17 06:30 MCHC 32.4 g/dl (32.0-36.0) 09/21/17 06:30 RDW 13.5 % (11.6-15.6) 09/21/17 06:30 Plt Count 268 K/MM3 (134-434) D 09/21/17 06:30 MPV 8.7 fl (7.5-11.1) 09/21/17 06:30 CMP Sodium 141 mmol/L (136-145) 09/21/17 08:15 Potassium 3.8 mmol/L (3.5-5.1) 09/21/17 08:15 Chloride 102 mmol/L (98-107) 09/21/17 08:15 Carbon Dioxide 27 mmol/L (21-32) 09/21/17 08:15 Anion Gap 12 (8-16) 09/21/17 08:15 BUN 6 mg/dL (7-18) L 09/21/17 08:15 Creatinine 0.6 mg/dL (0.55-1.02) 09/21/17 08:15 Creat Clearance w eGFR > 60 (>60) 09/21/17 08:15 Calcium 9.5 mg/dL (8.5-10.1) 09/21/17 08:15 Total Bilirubin 1.3 mg/dL (0.2-1.0) H 09/21/17 08:15 AST 22 U/L (15-37) 09/21/17 08:15 ALT 33 U/L (12-78) 09/21/17 08:15 Alkaline Phosphatase 126 U/L (45-117) H 09/21/17 08:15 Total Protein 7.8 g/dl (6.4-8.2) 09/21/17 08:15 Albumin 3.8 g/dl (3.4-5.0) 09/21/17 08:15 Problem List - Problems (1) Abdominal pain Code(s): R10.9 - UNSPECIFIED ABDOMINAL PAIN Qualifiers: Abdominal location: right lower quadrant Qualified Code(s): R10.31 - Right lower quadrant pain (2) Family history of colon cancer in mother Code(s): Z80.0 - FAMILY HISTORY OF MALIGNANT NEOPLASM OF DIGESTIVE ORGANS (3) Fecal impaction of colon Code(s): K56.41 - FECAL IMPACTION Assessment/Plan Colonoscopy is planned for . Continue current management Clear liquid diet today and tomorrow
[2017-09-21] MEDS ORDERED: PEG 3350/NA SULF BICARB CL/KCL 4000 ML SOLN.RECON PO ONE (14:00)
[2017-09-21] MEDS ORDERED: BISACODYL 5 MG TABLET.DR (FP) PO ONE (14:00)
--- NOTE | 2017-09-21 15:13 | PN ---
Teaching Attending Note Name of Resident: Rodrick Tyson ATTENDING PHYSICIAN STATEMENT I saw and evaluated the patient. I reviewed the resident's note and discussed the case with the resident. I agree with the resident's findings and plan as documented. SUBJECTIVE:abdominal pain resolved. had multiple BM yesterday. denies PC, SOB, fever, chills, N/V/C/D OBJECTIVE: Last Vital Signs Temp Pulse Resp BP Pulse Ox 98 F 67 18 123/81 99 09/21/17 10:09/21/17 10:09/21/17 10:00 09/21/17 10:09/21/17 09:00 General NAD Abdomen soft NT/ND no rebound or guarding normoactive BS ASSESSMENT AND PLAN: 51 yo F wtih no PMH but family hx significant for colon ca present wtih abdominal pain, distention and weight loss 1. Abdominal pain- +fecal retention seen on CT scan. multiple soft BM. tolerating liquid diet. plan for barium enema today. likely colonoscopy pending what is seen. cont laxatives/stool softeners. GI on board 2. DM- improved. on 10 units BID as only on liquids at this time. titrate up as needed. dietary eval 3. HTN- controlled. cont to hold home medications. 4. DVT ppx-hep sq
--- NOTE | 2017-09-21 17:32 | PN ---
Physical Exam: SUBJECTIVE: Patient seen and examined No acute events overnight. Pt reports decreased abdominal pain, nausea, and diarrhea. OBJECTIVE: Vital Signs Period Temp Pulse Resp BP Sys/Weaver Pulse Ox Last 24 Hr 97 F-98.6 F 55-71 18-20 122-125/61-81 99-99 GENERAL: middle aged female, awake, alert, and fully oriented, in no acute distress. HEENT: NC, AT LUNGS: Breath sounds equal, clear to auscultation bilaterally, no wheezes, no crackles, no accessory muscle use. HEART: Regular rate and rhythm, S1, S2 without murmur, rub or gallop. ABDOMEN: mildly distended, soft, moderately tender in RLQ EXTREMITIES: 2+ pulses, warm, well-perfused, no edema. NEUROLOGICAL: Cranial nerves II through XII grossly intact. Normal speech, gait not observed. Laboratory Results - last 24 hr 09/20/17 09/20/17 09/21/17 17:01 21:32 06:19 WBC RBC Hgb Hct MCV MCH MCHC RDW Plt Count MPV Neutrophils % Lymphocytes % Monocytes % Eosinophils % Basophils % Sodium Potassium Chloride Carbon Dioxide Anion Gap BUN Creatinine Creat Clearance w eGFR POC Glucometer 217 206 128 Random Glucose Calcium Total Bilirubin AST ALT Alkaline Phosphatase Total Protein Albumin 09/21/17 09/21/17 09/21/17 06:30 08:15 11:35 WBC 7.3 RBC 5.19 Hgb 14.5 Hct 44.8 MCV 86.3 MCH 28.0 MCHC 32.4 RDW 13.5 Plt Count 268 D MPV 8.7 Neutrophils % 41.4 L Lymphocytes % 50.3 H Monocytes % 4.8 Eosinophils % 3.0 Basophils % 0.5 Sodium 141 Potassium 3.8 Chloride 102 Carbon Dioxide 27 Anion Gap 12 BUN 6 L Creatinine 0.6 Creat Clearance w eGFR > 60 POC Glucometer 231 Random Glucose 125 H Calcium 9.5 Total Bilirubin 1.3 H AST 22 ALT 33 Alkaline Phosphatase 126 H Total Protein 7.8 Albumin 3.8 Active Medications Generic Name Dose Route Start Last Admin Trade Name Freq PRN Reason Stop Dose Admin Acetaminophen 650 mg 09/19/17 01:17 09/20/17 10:34 Tylenol - PO 650 mg Q4H PRN Administration MILD PAIN Docusate Sodium 300 mg 09/20/17 22:00 09/20/17 21:33 Colace - PO 300 mg HS JOSSY Administration Heparin Sodium (Porcine) 5,000 unit 09/20/17 22:00 09/21/17 09:53 Heparin - SQ 5,000 unit BID JOSSY Administration Sodium Chloride 1,000 mls @ 75 mls/hr 09/19/17 13:30 09/21/17 17:15 Normal Saline - IV Not Given ASDIR JOSSY Insulin Aspart 1 vial 09/19/17 07:00 09/21/17 11:51 Novolog Vial Sliding Scale - SQ 4 units ACHS JOSSY Administration Protocol Insulin Detemir 10 units 09/20/17 16:30 09/21/17 16:58 Levemir Vial SQ 10 units BIDAC JOSSY Administration Pantoprazole Sodium 40 mg 09/19/17 10:00 09/21/17 09:53 Protonix - PO 40 mg DAILY JOSSY Administration Polyethylene Glycol 17 gm 09/19/17 10:00 09/21/17 09:53 Miralax (For Daily Use) - PO 17 grams DAILY JOSSY Administration Polyethylene Glycol 17 gm 09/19/17 14:00 09/21/17 15:30 Miralax (For Daily Use) - PO 17 grams TID JOSSY Administration Senna 2 tab 09/20/17 22:00 09/20/17 21:33 Senna - PO 2 tab HS JOSSY Administration ASSESSMENT/PLAN: 51F w/ no PMH but family hx of colon ca who presented with abdominal pain, distention and weight loss. #Abdominal pain/weight loss -2/2 possible colonic mass. +fecal retention on CT -barium enema done today. f/u report. -likely colonoscopy pending what is seen -cont laxatives/stool softeners -GI on board, recs appreciated. plan for colonoscopy on thursday -f/u [facility] #DM -a1c of 12.6 -on levemir 10 units BID as only on liquids at this time -required 18U of ISS -titrate up as needed -dietary eval -ISS, BGM ACHS #HTN - controlled - cont to hold home medications. #FEN/ppx -NS @ 75 -electrolytes wnl -clear liquid diet -protonix -heparin 5000U TID Case discussed with attending, Dr. Bey. -Rodrick Tyson MD PGY1 Visit type - Emergency Visit Emergency Visit: Yes ED Registration Date: 09/19/17 Care time: The patient presented to the Emergency Department on the above date and was hospitalized for further evaluation of their emergent condition. - New Patient This patient is new to me today: No - Critical Care Critical Care patient: No
[2017-09-21] MEDS: DOCUSATE SODIUM 100 MG CAPSULE (FP) PO SCH (21:46)
[2017-09-21] MEDS: SENNOSIDES 8.6MG TABLET (FP) PO SCH (21:47)
[2017-09-22] MEDS: INSULIN SLIDING SCALE (NOVOLOG) 1 VIAL SQ SCH ×4 (06:32→21:36)
[2017-09-22] MEDS: POLYETHYLENE GLYCOL 3350 119 GM BTL PO SCH ×5 (06:32→21:46)
[2017-09-22] MEDS: INSULIN DETEMIR 100 UNITS/ML MDV SQ SCH ×2 (06:55→17:16)
[2017-09-22] MEDS ORDERED: INSULIN (NOVOLOG) ASPART 100 UNITS/ML 10ML VIAL ONE (07:31)
[2017-09-22 07:36] LABS: BASO % 0.5 % (0-2.0); HEMATOCRIT 45.5 % (32.4-45.2); HEMOGLOBIN 14.7 GM/dL (10.7-15.3); LYMPH % 46.6 % (8-40); MCH 27.8 pg (25.7-33.7); MCHC 32.3 g/dl (32.0-36.0); MEAN CELL VOLUME 86.1 fl (80-96); MEAN PLT VOLUME 8.3 fl (7.5-11.1); MONO % 4.2 % (3.8-10.2); NEUT % 46.7 % (42.8-82.8); PLATELET COUNT 248 K/MM3 (134-434); RBC 5.28 M/mm3 (3.60-5.2); RDW 13.5 % (11.6-15.6); WHITE BLOOD COUNT 8.1 K/mm3 (4.0-10.0)
[2017-09-22 08:03] LABS: ALBUMIN 3.8 g/dl (3.4-5.0); ALK PHOS 118 U/L (45-117); ANION GAP 11 (8-16); BILIRUBIN,TOTAL 1.1 mg/dL (0.2-1.0); BLOOD UREA NITROGEN 4 mg/dL (7-18); CALCIUM 9.6 mg/dL (8.5-10.1); CHLORIDE 103 mmol/L (98-107); CO2 28 mmol/L (21-32); CREATININE 0.6 mg/dL (0.55-1.02); GLUCOSE,RANDOM 116 mg/dL (74-106); POTASSIUM 3.6 mmol/L (3.5-5.1); SGOT/AST 19 U/L (15-37); SGPT/ALT 25 U/L (12-78); SODIUM 142 mmol/L (136-145); TOT PROT 7.4 g/dl (6.4-8.2)
--- NOTE | 2017-09-22 08:22 | PN ---
<Rodrick Tyson - Last Filed: 09/22/17 14:19> Physical Exam: SUBJECTIVE: Patient seen and examined Barium enema yesterday showed diffuse colonic fecal retention, but no masses. No acute events overnight. This am, pt endorses nausea and several episodes of diarrhea, and a headache. OBJECTIVE: Vital Signs Period Temp Pulse Resp BP Sys/Weaver Pulse Ox Last 24 Hr 97.5 F-98.6 F 54-71 18-18 104-131/56-81 99-99 GENERAL: middle aged female, awake, alert, and fully oriented, in no acute distress. HEENT: NC, AT LUNGS: Breath sounds equal, clear to auscultation bilaterally, no wheezes, no crackles, no accessory muscle use. HEART: Regular rate and rhythm, S1, S2 without murmur, rub or gallop. ABDOMEN: mildly distended, soft, no tenderness EXTREMITIES: 2+ pulses, warm, well-perfused, no edema. NEUROLOGICAL: Cranial nerves II through XII grossly intact. Normal speech, gait not observed. Laboratory Results - last 24 hr 09/20/17 09/21/17 09/21/17 06:00 08:15 11:35 WBC RBC Hgb Hct MCV MCH MCHC RDW Plt Count MPV Neutrophils % Lymphocytes % Monocytes % Eosinophils % Basophils % Sodium 141 Potassium 3.8 Chloride 102 Carbon Dioxide 27 Anion Gap 12 BUN 6 L Creatinine 0.6 Creat Clearance w eGFR > 60 POC Glucometer 231 Random Glucose 125 H Calcium 9.5 Total Bilirubin 1.3 H AST 22 ALT 33 Alkaline Phosphatase 126 H Total Protein 7.8 Albumin 3.8 Carcinoembryonic Ag 4.4 09/21/17 09/21/17 09/22/17 16:55 21:45 05:43 WBC RBC Hgb Hct MCV MCH MCHC RDW Plt Count MPV Neutrophils % Lymphocytes % Monocytes % Eosinophils % Basophils % Sodium Potassium Chloride Carbon Dioxide Anion Gap BUN Creatinine Creat Clearance w eGFR POC Glucometer 205 219 99 Random Glucose Calcium Total Bilirubin AST ALT Alkaline Phosphatase Total Protein Albumin Carcinoembryonic Ag 09/22/17 06:00 WBC 8.1 RBC 5.28 H Hgb 14.7 Hct 45.5 H MCV 86.1 MCH 27.8 MCHC 32.3 RDW 13.5 Plt Count 248 MPV 8.3 Neutrophils % 46.7 Lymphocytes % 46.6 H Monocytes % 4.2 Eosinophils % 2.0 Basophils % 0.5 Sodium Potassium Chloride Carbon Dioxide Anion Gap BUN Creatinine Creat Clearance w eGFR POC Glucometer Random Glucose Calcium Total Bilirubin AST ALT Alkaline Phosphatase Total Protein Albumin Carcinoembryonic Ag Active Medications Generic Name Dose Route Start Last Admin Trade Name Freq PRN Reason Stop Dose Admin Acetaminophen 650 mg 09/19/17 01:17 09/20/17 10:34 Tylenol - PO 650 mg Q4H PRN Administration MILD PAIN Docusate Sodium 300 mg 09/20/17 22:00 09/21/17 21:46 Colace - PO Not Given HS [facility] Heparin Sodium (Porcine) 5,000 unit 09/20/17 22:00 09/21/17 21:47 Heparin - SQ 5,000 unit BID JOSSY Administration Sodium Chloride 1,000 mls @ 75 mls/hr 09/19/17 13:30 09/21/17 17:15 Normal Saline - IV Not Given ASDIR [facility] Insulin Aspart 1 vial 09/19/17 07:00 09/22/17 06:32 Novolog Vial Sliding Scale - SQ Not Given ACHS [facility] Protocol Insulin Detemir 10 units 09/20/17 16:30 09/22/17 06:55 Levemir Vial SQ 10 units BIDAC JOSSY Administration Pantoprazole Sodium 40 mg 09/19/17 10:00 09/21/17 09:53 Protonix - PO 40 mg DAILY JOSSY Administration Polyethylene Glycol 17 gm 09/19/17 10:00 09/21/17 09:53 Miralax (For Daily Use) - PO 17 grams DAILY JOSSY Administration Polyethylene Glycol 17 gm 09/19/17 14:00 09/22/17 06:32 Miralax (For Daily Use) - PO Not Given TID JOSSY Senna 2 tab 09/20/17 22:00 09/21/17 21:47 Senna - PO Not Given HS [facility] ASSESSMENT/PLAN: 51F w/ no PMH but family hx of colon ca who presented with abdominal pain, distention and weight loss. #Abdominal pain/weight loss -2/2 possible colonic mass. +fecal retention on CT -barium enema: diffuse colonic fecal retention, no masses -colonoscopy scheduled for weds. -cont colace, miralax, and senna -GI on board, recs appreciated. -CEA: 4.4, normal #CT suggestive of cirrhosis -f/u abdominal US -f/u hepatitis panel #DM -a1c of 12.6 -on levemir 10 units BID as only on liquids at this time -required 12U of ISS -titrate up as needed -dietary eval -ISS, BGM ACHS #HTN - controlled - cont to hold home medications. #FEN/ppx -NS @ 75 -electrolytes wnl -clear liquid diet -protonix -heparin 5000U BID, held after midnight Case discussed with attending, Dr. Green. -Rodrick Tyson MD PGY1 Visit type - Emergency Visit Emergency Visit: Yes ED Registration Date: 09/19/17 Care time: The patient presented to the Emergency Department on the above date and was hospitalized for further evaluation of their emergent condition. - New Patient This patient is new to me today: No - Critical Care Critical Care patient: No <PeterJose - Last Filed: 09/22/17 18:14> Physical Exam: Patient seen and examined with Dr. Tyson at 11 :00 AM Agree with above findings and plan of care with exceptions mentioned below. O/E: Abdomen: soft, non tender throughout, no voluntary or involuntary guarding or rigidity Extremities: no edema Assessment/Plan: -Abdominal Pain -Unintentional weight loss, r/o GI malignancy -CT evidence of ?Cirrhosis -IDDM -HTN Plan: For colonoscopy tomorrow, will follow up. Check Hep panel and abdominal ultrasound, no ETOH history per patient. Low dose levemir, ISS, diabetic diet. Hold home anti-hypertensives. GIPPX, DVTPPX dispo pending colonscopy tomorrow. Plan discussed with patient in detail, all questions answered.
[2017-09-22] MEDS ORDERED: POTASSIUM CHLORIDE TABS 20 MEQ TABLET.ER (FP) PO ONE (09:15)
[2017-09-22] MEDS: HEPARIN NA (PORCINE) 5,000 UNITS/ML 1ML VIAL SQ SCH ×2 (09:17→21:33)
[2017-09-22] MEDS: PANTOPRAZOLE 40 MG TABLET (FP) PO SCH (09:17)
[2017-09-22] MEDS: SODIUM CHLORIDE 1,000 ML IV SCH (12:46)
[2017-09-22] MEDS ORDERED: PEG 3350/NA SULF BICARB CL/KCL 4000 ML SOLN.RECON PO ONE (17:15)
[2017-09-22] MEDS: SENNOSIDES 8.6MG TABLET (FP) PO SCH (21:32)
[2017-09-22] MEDS: DOCUSATE SODIUM 100 MG CAPSULE (FP) PO SCH (21:32)
[2017-09-23] MEDS: POLYETHYLENE GLYCOL 3350 119 GM BTL PO SCH ×4 (06:31→22:49)
[2017-09-23] MEDS: INSULIN SLIDING SCALE (NOVOLOG) 1 VIAL SQ SCH ×4 (06:32→22:50)
[2017-09-23] MEDS: INSULIN DETEMIR 100 UNITS/ML MDV SQ SCH ×2 (06:32→16:50)
[2017-09-23] MEDS ORDERED: INSULIN (NOVOLOG) ASPART 100 UNITS/ML 10ML VIAL ONE (06:47)
[2017-09-23 07:10] LABS: CHLORIDE 107 mmol/L (98-107); POTASSIUM 3.2 mmol/L (3.5-5.1); SODIUM 143 mmol/L (136-145)
[2017-09-23 07:16] LABS: ALBUMIN 3.9 g/dl (3.4-5.0); ALK PHOS 109 U/L (45-117); ANION GAP 7 (8-16); BILIRUBIN,TOTAL 1.1 mg/dL (0.2-1.0); BLOOD UREA NITROGEN 3 mg/dL (7-18); CALCIUM 8.7 mg/dL (8.5-10.1); CO2 29 mmol/L (21-32); CREATININE 0.5 mg/dL (0.55-1.02); GLUCOSE,RANDOM 78 mg/dL (74-106); SGOT/AST 17 U/L (15-37); SGPT/ALT 23 U/L (12-78); TOT PROT 7.1 g/dl (6.4-8.2)
[2017-09-23] MEDS: POTASSIUM CHLORIDE 10 MEQ in SODIUM CHLORIDE 100 ML IVPB SCH ×3 (09:53→12:42)
[2017-09-23] MEDS: PANTOPRAZOLE 40 MG TABLET (FP) PO SCH (09:53)
--- NOTE | 2017-09-23 14:21 | PN ---
Teaching Attending Note Name of Resident: Rodrick Tyson ATTENDING PHYSICIAN STATEMENT Time of evaluation: 11:55 AM I saw and evaluated the patient. I reviewed the resident's note and discussed the case with the resident. I agree with the resident's findings and plan as documented. SUBJECTIVE: Patient seen and examined. no abdominal pain, dark or bloody stools, awaiting colonoscopy. OBJECTIVE: Vital Signs Period Temp Pulse Resp BP Sys/Weaver Pulse Ox Last 24 Hr 97.2 F-98.2 F 54-68 18-20 122-142/70-85 98-99 Intake & Output 09/20/17 09/21/17 09/22/17 09/23/17 23:59 23:59 23:59 23:59 Intake Total 1575 1190 1650 600 Balance 1575 1190 1650 600 General: sitting in chair in no acute distress Abdomen: soft, obese, NT throughout, no voluntary or involuntary guarding or rigidity, positive bowel sounds Home Medication List Medication Instructions Recorded Confirmed Type Atorvastatin Ca [Lipitor] 40 mg PO HS 09/19/17 09/20/17 History Insulin Glargine,Hum.rec.anlog 22 unit SQ BID 09/19/17 09/20/17 History [Basaglar Kwikpen U-100] Losartan Potassium 25 mg PO DAILY 09/19/17 09/20/17 History Metformin HCl [Glucophage] 1,000 mg PO BID 09/19/17 09/20/17 History Active Medications Generic Name Dose Route Start Last Admin Trade Name Freq PRN Reason Stop Dose Admin Acetaminophen 650 mg 09/19/17 01:17 09/20/17 10:34 Tylenol - PO 650 mg Q4H PRN Administration MILD PAIN Docusate Sodium 300 mg 09/20/17 22:00 09/22/17 21:32 Colace - PO 300 mg HS JOSSY Administration Sodium Chloride 1,000 mls @ 75 mls/hr 09/19/17 13:30 09/22/17 12:46 Normal Saline - IV 75 mls/hr ASDIR JOSSY Administration Insulin Aspart 1 vial 09/19/17 07:00 09/23/17 11:32 Novolog Vial Sliding Scale - SQ Not Given ACHS JOSSY Protocol Insulin Detemir 10 units 09/20/17 16:30 09/23/17 06:32 Levemir Vial SQ 10 units BIDAC JOSSY Administration Pantoprazole Sodium 40 mg 09/19/17 10:00 09/23/17 09:53 Protonix - PO Not Given DAILY JOSSY Polyethylene Glycol 17 gm 09/19/17 10:00 09/23/17 09:53 Miralax (For Daily Use) - PO Not Given DAILY JOSSY Polyethylene Glycol 17 gm 09/19/17 14:00 09/23/17 13:51 Miralax (For Daily Use) - PO Not Given TID JOSSY Senna 2 tab 09/20/17 22:00 09/22/17 21:32 Senna - PO 2 tab HS JOSSY Administration Laboratory Results - last 24 hr 09/22/17 09/22/17 09/23/17 16:44 21:35 05:35 Sodium 143 Potassium 3.2 L Chloride 107 Carbon Dioxide 29 Anion Gap 7 L BUN 3 L Creatinine 0.5 L Creat Clearance w eGFR > 60 POC Glucometer 150 157 Random Glucose 78 Calcium 8.7 Total Bilirubin 1.1 H AST 17 ALT 23 Alkaline Phosphatase 109 Total Protein 7.1 Albumin 3.9 09/23/17 06:31 Sodium Potassium Chloride Carbon Dioxide Anion Gap BUN Creatinine Creat Clearance w eGFR POC Glucometer 91 Random Glucose Calcium Total Bilirubin AST ALT Alkaline Phosphatase Total Protein Albumin Microbiology 09/19/17 02:05 Urine - Urine Clean Catch Urine Culture - Final Contaminated: Please Repeat Abdominal ultrasound reviewed. ASSESSMENT AND PLAN: 51 yof admitted with abdominal pain, weight loss, and CT evidence of ? cirrhosis. -Abdominal Pain -Unintentional weight loss, r/o GI malignancy -Hepatic cirrhosis, new diagnosis with ?hepatic mass -IDDM -HTN Plan: For colonoscopy today, will follow up. Abdominal ultrasound noted, check AFP, discussed with GI, triple phase contrast enhanced MRI. FOllow up Hep panel, no ETOH history in the past. Low dose levemir, ISS, diabetic diet. Hold home anti-hypertensives. GIPPX, DVTPPX dispo pending colonoscopy and hepatic mass w/u.
--- NOTE | 2017-09-23 14:23 | PN ---
Physical Exam: SUBJECTIVE: Patient seen and examined No acute events overnight. Pt reports minimal nausea. She denies abdominal pain , and endorses diarrhea from the bowel prep. OBJECTIVE: Vital Signs Period Temp Pulse Resp BP Sys/Weaver Pulse Ox Last 24 Hr 97.2 F-98.2 F 54-68 18-20 122-142/70-85 98-99 GENERAL: middle aged female, awake, alert, and fully oriented, in no acute distress. HEENT: NC, AT LUNGS: Breath sounds equal, clear to auscultation bilaterally, no wheezes, no crackles, no accessory muscle use. HEART: Regular rate and rhythm, S1, S2 without murmur, rub or gallop. ABDOMEN: mildly distended, soft, no tenderness EXTREMITIES: 2+ pulses, warm, well-perfused, no edema. NEUROLOGICAL: Cranial nerves II through XII grossly intact. Normal speech, gait not observed. Laboratory Results - last 24 hr 09/22/17 09/22/17 09/23/17 16:44 21:35 05:35 Sodium 143 Potassium 3.2 L Chloride 107 Carbon Dioxide 29 Anion Gap 7 L BUN 3 L Creatinine 0.5 L Creat Clearance w eGFR > 60 POC Glucometer 150 157 Random Glucose 78 Calcium 8.7 Total Bilirubin 1.1 H AST 17 ALT 23 Alkaline Phosphatase 109 Total Protein 7.1 Albumin 3.9 09/23/17 06:31 Sodium Potassium Chloride Carbon Dioxide Anion Gap BUN Creatinine Creat Clearance w eGFR POC Glucometer 91 Random Glucose Calcium Total Bilirubin AST ALT Alkaline Phosphatase Total Protein Albumin Active Medications Generic Name Dose Route Start Last Admin Trade Name Freq PRN Reason Stop Dose Admin Acetaminophen 650 mg 09/19/17 01:17 09/20/17 10:34 Tylenol - PO 650 mg Q4H PRN Administration MILD PAIN Docusate Sodium 300 mg 09/20/17 22:00 09/22/17 21:32 Colace - PO 300 mg HS JOSSY Administration Sodium Chloride 1,000 mls @ 75 mls/hr 09/19/17 13:30 09/22/17 12:46 Normal Saline - IV 75 mls/hr ASDIR JOSSY Administration Insulin Aspart 1 vial 09/19/17 07:00 09/23/17 11:32 Novolog Vial Sliding Scale - SQ Not Given ACHS [facility] Protocol Insulin Detemir 10 units 09/20/17 16:30 09/23/17 06:32 Levemir Vial SQ 10 units BIDAC JOSSY Administration Pantoprazole Sodium 40 mg 09/19/17 10:00 09/23/17 09:53 Protonix - PO Not Given DAILY JOSSY Polyethylene Glycol 17 gm 09/19/17 10:00 09/23/17 09:53 Miralax (For Daily Use) - PO Not Given DAILY JOSSY Polyethylene Glycol 17 gm 09/19/17 14:00 09/23/17 13:51 Miralax (For Daily Use) - PO Not Given TID JOSSY Senna 2 tab 09/20/17 22:00 09/22/17 21:32 Senna - PO 2 tab HS JOSSY Administration ASSESSMENT/PLAN: 51F w/ no PMH but family hx of colon ca who presented with abdominal pain, distention and weight loss, admitted for GI workup. #Abdominal pain/weight loss -2/2 possible colonic mass. +fecal retention on CT -barium enema: diffuse colonic fecal retention, no masses -colonoscopy today: f/u results -cont colace, miralax, and senna -GI on board, recs appreciated. -CEA: 4.4, normal #cirrhosis- asymptomatic -abdominal US: shows cirrhosis, echogenic focus in left hepatic lobe, cholelithiasis with wall thickening (rec 2 month f/u US) -f/u hepatitis panel -f/u AFP -f/u triple phase MRI to r/o HCC #DM -a1c of 12.6 -on levemir 10 units BID as only on liquids at this time -required 6U of ISS -titrate up as needed -dietary eval -ISS, BGM ACHS #HTN - controlled - cont to hold home medications. #FEN/ppx -NS @ 75 -replete K -NPO for colonoscopy -protonix -heparin held for colonoscopy #Dispo -pending results of colonoscopy and MRI Case discussed with attending, Dr. Green. -Rodrick Tyson MD PGY1 Visit type - Emergency Visit Emergency Visit: Yes ED Registration Date: 09/19/17 Care time: The patient presented to the Emergency Department on the above date and was hospitalized for further evaluation of their emergent condition. - New Patient This patient is new to me today: No - Critical Care Critical Care patient: No
[2017-09-23] MEDS ORDERED: PROPOFOL 20 ML ONE (14:34)
--- NOTE | 2017-09-23 15:28 | PROC ---
Endoscopy Procedure Endoscopy procedure completed. Please see scanned procedure report. Large diameter left and right colon, otherwise normal colonoscopy. High fiber diet may not be beneficial in her case. Miralax bid-tid
--- NOTE | 2017-09-23 20:30 | PN ---
Progress Note (short form) - Note Progress Note: Called about lack of normal saline and LR in the hospital. Plan : Hold off fluids till morning till primary team determines alternatives
[2017-09-23] MEDS: DOCUSATE SODIUM 100 MG CAPSULE (FP) PO SCH (22:49)
[2017-09-23] MEDS: SENNOSIDES 8.6MG TABLET (FP) PO SCH (22:49)
[2017-09-24] MEDS: POLYETHYLENE GLYCOL 3350 119 GM BTL PO SCH ×3 (05:19→14:21)
[2017-09-24] MEDS ORDERED: PT OWN MED DRAWER 7, Y5N ONE (05:57)
[2017-09-24] MEDS: SODIUM CHLORIDE 1,000 ML IV SCH (06:10)
[2017-09-24] MEDS: INSULIN DETEMIR 100 UNITS/ML MDV SQ SCH ×2 (06:10→17:22)
[2017-09-24] MEDS: INSULIN SLIDING SCALE (NOVOLOG) 1 VIAL SQ SCH ×3 (06:11→17:21)
[2017-09-24] MEDS ORDERED: INSULIN (NOVOLOG) ASPART 100 UNITS/ML 10ML VIAL ONE (06:38)
[2017-09-24] MEDS ORDERED: ALPRAZolam 0.25 MG TABLET PO SCH (08:02)
--- NOTE | 2017-09-24 08:47 | PN ---
Teaching Attending Note Name of Resident: Rodrick Tyson ATTENDING PHYSICIAN STATEMENT Time of evaluation: 10:15 AM I saw and evaluated the patient. I reviewed the resident's note and discussed the case with the resident. I agree with the resident's findings and plan as documented. SUBJECTIVE: Patient seen and examined. no complaints, eager to be discharged. OBJECTIVE: Vital Signs Period Temp Pulse Resp BP Sys/Weaver Pulse Ox Last 24 Hr 97.3 F-98.0 F 51-75 16-20 116-142/56-76 98-100 Intake & Output 09/21/17 09/22/17 09/23/17 09/24/17 23:59 23:59 23:59 23:59 Intake Total 1190 1650 2025 900 Balance 1190 1650 2025 900 General: ambulating in room, no acute distress Abdomen: soft, NT, ND, positive bowel sounds, no RUQ tenderness noted Home Medication List Medication Instructions Recorded Confirmed Type Atorvastatin Ca [Lipitor] 40 mg PO HS 09/19/17 09/20/17 History Insulin Glargine,Hum.rec.anlog 22 unit SQ BID 09/19/17 09/20/17 History [Basaglar Kwikpen U-100] Losartan Potassium 25 mg PO DAILY 09/19/17 09/20/17 History Metformin HCl [Glucophage] 1,000 mg PO BID 09/19/17 09/20/17 History Active Medications Generic Name Dose Route Start Last Admin Trade Name Freq PRN Reason Stop Dose Admin Acetaminophen 650 mg 09/19/17 01:17 09/20/17 10:34 Tylenol - PO 650 mg Q4H PRN Administration MILD PAIN Alprazolam 0.25 mg 09/24/17 08:02 Xanax - PO 09/25/17 23:59 ONCE JOSSY Docusate Sodium 300 mg 09/20/17 22:00 09/23/17 22:49 Colace - PO Not Given HS JOSSY Insulin Aspart 1 vial 09/19/17 07:00 09/24/17 06:11 Novolog Vial Sliding Scale - SQ 4 units ACHS JOSSY Administration Protocol Insulin Detemir 10 units 09/20/17 16:30 09/24/17 06:10 Levemir Vial SQ 10 units BIDAC JOSSY Administration Pantoprazole Sodium 40 mg 09/19/17 10:00 09/23/17 09:53 Protonix - PO Not Given DAILY JOSSY Polyethylene Glycol 17 gm 09/19/17 10:00 09/23/17 09:53 Miralax (For Daily Use) - PO Not Given DAILY JOSSY Polyethylene Glycol 17 gm 09/19/17 14:00 09/24/17 05:19 Miralax (For Daily Use) - PO Not Given TID JOSSY Senna 2 tab 09/20/17 22:00 09/23/17 22:49 Senna - PO Not Given HS JOSSY Laboratory Results - last 24 hr 09/23/17 09/23/17 09/23/17 06:31 11:28 16:32 POC Glucometer 91 85 75 09/23/17 09/24/17 22:48 06:08 POC Glucometer 293 210 Microbiology 09/19/17 02:05 Urine - Urine Clean Catch Urine Culture - Final Contaminated: Please Repeat ASSESSMENT AND PLAN: 51 yof admitted with abdominal pain, weight loss, and CT evidence of ? cirrhosis. -Abdominal Pain -Unintentional weight loss, r/o GI malignancy -Hepatic cirrhosis, new diagnosis with ?hepatic mass -IDDM -HTN Plan: Colonoscopy noted, high fiber diet, bowel regimen. Abdominal ultrasound noted, Follow up AFP, hep panel. MRI contrast enhanced as discussed with GI, will follow up. No ETOH history in the past. Low dose levemir, titrate per PO intake, ISS, diabetic diet. Resume home losartan. GIPPX, DVTPPX dispo pending hepatic mass w/u per GI recs. Anticipate in 24 hours if no new concerns.
[2017-09-24 08:53] LABS: BASO % 0.4 % (0-2.0); EOS % 2.2 % (0-4.5); HEMATOCRIT 43.2 % (32.4-45.2); HEMOGLOBIN 14.5 GM/dL (10.7-15.3); LYMPH % 31.1 % (8-40); MCH 28.9 pg (25.7-33.7); MCHC 33.7 g/dl (32.0-36.0); MEAN CELL VOLUME 85.9 fl (80-96); MEAN PLT VOLUME 8.3 fl (7.5-11.1); MONO % 4.7 % (3.8-10.2); NEUT % 61.6 % (42.8-82.8); PLATELET COUNT 239 K/MM3 (134-434); RBC 5.02 M/mm3 (3.60-5.2); RDW 13.6 % (11.6-15.6)
[2017-09-24 09:16] LABS: ALBUMIN 3.7 g/dl (3.4-5.0); ALK PHOS 128 U/L (45-117); ANION GAP 7 (8-16); BILIRUBIN,TOTAL 1.4 mg/dL (0.2-1.0); BLOOD UREA NITROGEN 9 mg/dL (7-18); CALCIUM 8.9 mg/dL (8.5-10.1); CHLORIDE 103 mmol/L (98-107); CO2 27 mmol/L (21-32); CREATININE 0.7 mg/dL (0.55-1.02); GLUCOSE,RANDOM 221 mg/dL (74-106); SGOT/AST 18 U/L (15-37); SGPT/ALT 25 U/L (12-78); SODIUM 137 mmol/L (136-145); TOT PROT 7.6 g/dl (6.4-8.2)
[2017-09-24] MEDS: PANTOPRAZOLE 40 MG TABLET (FP) PO SCH (09:58)
[2017-09-24] MEDS ORDERED: LOSARTAN POTASSIUM 25 MG TABLET PO SCH (10:00)
--- NOTE | 2017-09-24 14:36 | PN ---
Progress Note, Physician History of Present Illness: No events overnight. Ambulating. MRI results noted, AFP pending - Current Medication List Current Medications: Active Medications Acetaminophen (Tylenol -) 650 mg PO Q4H PRN PRN Reason: MILD PAIN Last Admin: 09/20/17 10:34 Dose: 650 mg Alprazolam (Xanax -) 0.25 mg PO ONCE [facility] Stop: 09/25/17 23:59 Last Admin: 09/24/17 09:58 Dose: 0.25 mg Docusate Sodium (Colace -) 300 mg PO HS [facility] Last Admin: 09/23/17 22:49 Dose: Not Given Insulin Aspart (Novolog Vial Sliding Scale -) 1 vial SQ ACHS JOSSY PRN Reason: Protocol Last Admin: 09/24/17 11:47 Dose: 8 units Insulin Detemir (Levemir Vial) 10 units SQ BIDAC [facility] Last Admin: 09/24/17 06:10 Dose: 10 units Losartan Potassium (Cozaar -) 25 mg PO DAILY [facility] Last Admin: 09/24/17 09:57 Dose: 25 mg Pantoprazole Sodium (Protonix -) 40 mg PO DAILY [facility] Last Admin: 09/24/17 09:58 Dose: 40 mg Polyethylene Glycol (Miralax (For Daily Use) -) 17 gm PO DAILY [facility] Last Admin: 09/24/17 09:58 Dose: 17 grams Polyethylene Glycol (Miralax (For Daily Use) -) 17 gm PO TID [facility] Last Admin: 09/24/17 14:21 Dose: 17 grams Senna (Senna -) 2 tab PO HS [facility] Last Admin: 09/23/17 22:49 Dose: Not Given - Objective Vital Signs: Vital Signs Temperature 97.9 F 09/24/17 08:57 Pulse Rate 88 09/24/17 08:57 Respiratory Rate 18 09/24/17 08:57 Blood Pressure 122/75 09/24/17 08:57 O2 Sat by Pulse Oximetry (%) 98 09/24/17 09:00 Constitutional: Yes: Well Nourished, No Distress, Calm Eyes: Yes: Conjunctiva Clear Gastrointestinal: Yes: Soft. No: Distention, Rectal Bleeding, Tenderness, Vomiting Neurological: Yes: Alert Labs: CBC, BMP 09/24/17 08:30 09/24/17 08:30 INR, PTT INR 1.15 (0.82-1.09) H 09/20/17 06:00 Laboratory Results - last 24 hr 09/23/17 09/23/17 09/23/17 11:28 16:32 22:48 WBC RBC Hgb Hct MCV MCH MCHC RDW Plt Count MPV Neutrophils % Lymphocytes % Monocytes % Eosinophils % Basophils % Sodium Potassium Chloride Carbon Dioxide Anion Gap BUN Creatinine Creat Clearance w eGFR POC Glucometer 85 75 293 Random Glucose Calcium Total Bilirubin AST ALT Alkaline Phosphatase Total Protein Albumin 09/24/17 09/24/17 09/24/17 06:08 08:30 08:30 WBC 7.0 RBC 5.02 Hgb 14.5 Hct 43.2 MCV 85.9 MCH 28.9 MCHC 33.7 RDW 13.6 Plt Count 239 MPV 8.3 Neutrophils % 61.6 D Lymphocytes % 31.1 D Monocytes % 4.7 Eosinophils % 2.2 Basophils % 0.4 Sodium 137 Potassium 4.0 Chloride 103 Carbon Dioxide 27 Anion Gap 7 L BUN 9 Creatinine 0.7 Creat Clearance w eGFR > 60 POC Glucometer 210 Random Glucose 221 H Calcium 8.9 Total Bilirubin 1.4 H D AST 18 ALT 25 Alkaline Phosphatase 128 H Total Protein 7.6 Albumin 3.7 09/24/17 11:30 WBC RBC Hgb Hct MCV MCH MCHC RDW Plt Count MPV Neutrophils % Lymphocytes % Monocytes % Eosinophils % Basophils % Sodium Potassium Chloride Carbon Dioxide Anion Gap BUN Creatinine Creat Clearance w eGFR POC Glucometer 321 Random Glucose Calcium Total Bilirubin AST ALT Alkaline Phosphatase Total Protein Albumin Problem List - Problems (1) Abdominal pain Code(s): R10.9 - UNSPECIFIED ABDOMINAL PAIN Qualifiers: Abdominal location: right lower quadrant Qualified Code(s): R10.31 - Right lower quadrant pain (2) Family history of colon cancer in mother Code(s): Z80.0 - FAMILY HISTORY OF MALIGNANT NEOPLASM OF DIGESTIVE ORGANS (3) Fecal impaction of colon Code(s): K56.41 - FECAL IMPACTION Assessment/Plan Advance diet AFP Follow up with GI/Hep as OP
--- NOTE | 2017-09-24 16:28 | DS ---
Physical Exam: SUBJECTIVE: Patient seen and examined No acute events overnight. Pt denies lightheadedness, chest pain, SOB, n/v, dysuria, and leg pain. OBJECTIVE: Vital Signs Period Temp Pulse Resp BP Sys/Weaver Pulse Ox Last 24 Hr 97.3 F-99.2 F 52-98 18-20 112-138/44-75 98-99 PHYSICAL EXAM GENERAL: middle aged female, awake, alert, and fully oriented, in no acute distress. HEENT: NC, AT LUNGS: Breath sounds equal, clear to auscultation bilaterally, no wheezes, no crackles, no accessory muscle use. HEART: Regular rate and rhythm, S1, S2 without murmur, rub or gallop. ABDOMEN: mildly distended, soft, no tenderness EXTREMITIES: 2+ pulses, warm, well-perfused, no edema. NEUROLOGICAL: Cranial nerves II through XII grossly intact. Normal speech, gait not observed. LABS Laboratory Results - last 24 hr 09/23/17 09/23/17 09/23/17 11:28 16:32 22:48 WBC RBC Hgb Hct MCV MCH MCHC RDW Plt Count MPV Neutrophils % Lymphocytes % Monocytes % Eosinophils % Basophils % Sodium Potassium Chloride Carbon Dioxide Anion Gap BUN Creatinine Creat Clearance w eGFR POC Glucometer 85 75 293 Random Glucose Calcium Total Bilirubin AST ALT Alkaline Phosphatase Total Protein Albumin 09/24/17 09/24/17 09/24/17 06:08 08:30 08:30 WBC 7.0 RBC 5.02 Hgb 14.5 Hct 43.2 MCV 85.9 MCH 28.9 MCHC 33.7 RDW 13.6 Plt Count 239 MPV 8.3 Neutrophils % 61.6 D Lymphocytes % 31.1 D Monocytes % 4.7 Eosinophils % 2.2 Basophils % 0.4 Sodium 137 Potassium 4.0 Chloride 103 Carbon Dioxide 27 Anion Gap 7 L BUN 9 Creatinine 0.7 Creat Clearance w eGFR > 60 POC Glucometer 210 Random Glucose 221 H Calcium 8.9 Total Bilirubin 1.4 H D AST 18 ALT 25 Alkaline Phosphatase 128 H Total Protein 7.6 Albumin 3.7 09/24/17 11:30 WBC RBC Hgb Hct MCV MCH MCHC RDW Plt Count MPV Neutrophils % Lymphocytes % Monocytes % Eosinophils % Basophils % Sodium Potassium Chloride Carbon Dioxide Anion Gap BUN Creatinine Creat Clearance w eGFR POC Glucometer 321 Random Glucose Calcium Total Bilirubin AST ALT Alkaline Phosphatase Total Protein Albumin Microbiology 09/19/17 02:05 Urine - Urine Clean Catch Urine Culture - Final Contaminated: Please Repeat CT abd/pelvis: possible proximal enteritis, fecal retention. Bladder US: negative for any gross pathology Barium Enema: diffuse colonic fecal retention Abdominal US: echogenic focus in left hepatic lobe. cirrhosis. cholelithiasis w / gallbladder wall thickening. Recommend 2 month f/u US MRI triple phase of abdomen: cirrhosis. No evidence of HCC. HOSPITAL COURSE: Date of Admission:09/19/17 Date of Discharge: 09/24/17 51F w/ hx of DM and family hx of colon ca who presented with abdominal pain, distention and weight loss, found to have mildly elevated LFTs, admitted for GI workup. Colonoscopy only showed a large diameter colon. Abdominal US showed cirrhosis with an echogenic focus, so an MRI triple phase abdomen was done which showed no HCC. AFP and hepatitis panel pending. CEA was negative. Today, pt has no complaints, has normal vitals, a benign physical exam, and is stable for discharge home. Pt instructed to f/u with PCP and GI. Pt told to obtain results of AFP and hepatitis panel, and to obtain a f/u abdominal US for her cirrhosis. -Rodrick Tyson MD PGY1 Minutes to complete discharge: 37 Discharge Summary Reason For Visit: NON SPECIFIC MESENTERIC ADENITIS Current Active Problems Abdominal pain (Acute) Alkaline phosphatase elevation (Acute) Cirrhosis (Acute) DVT prophylaxis (Acute) Decreased appetite (Acute) Diabetes (Acute) Fecal impaction of colon (Acute) Hyperbilirubinemia (Acute) Hypertension (Acute) Nonspecific mesenteric adenitis (Acute) Thickened small bowel (Acute) Weight loss, unintentional (Acute) Family history of colon cancer in mother (Chronic) Condition: Stable - Instructions Diet, Activity, Other Instructions: You presented with abdominal pain, distention, and weight loss. You were found to have liver cirrhosis. You underwent a colonoscopy which only showed dilation of the colon. You were found with liver 'cirrhosis'. Your blood tests including AFP and hepatitis panel have been sent results of which are currently pending, you will need to have your doctor follow up on those results within 1 week Also please discuss with your doctor for outpatient referral to a gis scientist and you will need follow up belly ultrasound to monitor the same. Medications: Continue all medications as before. Followups: 1. Please visit your PCP, Dr. Garcia, in one week. Consider getting a TSH lab drawn. 2. Please visit GI, Dr. Worley, in one week. Make sure to obtain results of your AFP and hepatitis panel. Get a repeat abdominal ultrasound to assess your liver and gallbladder. You will need a referral to a gis scientist. GI said that a high fiber diet may not be beneficial for you. If you develop any chest pain, shortness of breath, bloody stools, or any other concerning symptoms, return to the ED. Referrals: Eric Worley MD [Staff Physician] - Evy Mendoza MD [Primary Care Provider] - Disposition: HOME - Home Medications Comprehensive Discharge Medication List: Ambulatory Orders Atorvastatin Ca [Lipitor] 40 mg PO HS 09/19/17 Insulin Glargine,Hum.rec.anlog [Basaglar Kwikpen U-100] 22 unit SQ BID 09/19/17 Losartan Potassium 25 mg PO DAILY 09/19/17 Metformin HCl [Glucophage] 1,000 mg PO BID 09/19/17 This patient is new to me today: No Emergency Visit: Yes ED Registration Date: 09/19/17 Care time: The patient presented to the Emergency Department on the above date and was hospitalized for further evaluation of their emergent condition. Critical Care patient: No - Discharge Referral Referred to [facility] No
[2017-09-24 16:49] VITALS: BP 124/64; PULSE 70; TEMP 97.3
[2017-09-27 06:37] LABS: HBSAG SCREEN Negative (Negative); HEP A AB, IGM Negative (Negative); HEP B CORE AB, TOT Positive (Negative)
== END 2017-09-24 18:05 | disposition home or self-care (01) ==
LOC: JER 19:38 → JERBED 09-19 05:14 → UNDOADMIN 09-19 05:16 → J7W 09-19 07:01
PROVIDERS: ADMIT Internal Medicine; ATTEND Hospitalist
PROC: 0DJD8ZZ Inspection of Lower Intestinal Tract, Via Natural or Artificial Opening Endoscopic (ICD-10-PCS; principal; 2017-09-23 14:15)
DX: K74.60 Unspecified cirrhosis of liver (principal); R10.9 Unspecified abdominal pain; R17 Unspecified jaundice; R63.4 Abnormal weight loss; K59.00 Constipation, unspecified; Z80.0 Family history of malignant neoplasm of digestive organs; R14.0 Abdominal distension (gaseous); R11.0 Nausea; R19.7 Diarrhea, unspecified; I10 Essential (primary) hypertension; K56.41 Fecal impaction; E11.65 Type 2 diabetes mellitus with hyperglycemia; E78.5 Hyperlipidemia, unspecified
CPT/HCPCS: 36415; 74177-TC; 74183-TC; 74270-TC-FY; 76700-TC; 76830-TC; 76856-TC; 80053; 81003; 81015; 82105; 82378; 82962; 83036; 83735; 84100; 85025; 85610; 86140; 86704; 86706; 86708; 87086; 87340; 99282-25; J1644

== ENCOUNTER 2018-08-31 13:49 | Emergency (ER) | payer OTHER ==
--- NOTE | 2018-08-31 14:02 | PDOC ---
Rapid Medical Evaluation Chief Complaint: Asthma Time Seen by Provider: 08/31/18 13:58 Medical Evaluation: Allergies Allergy/AdvReac Type Severity Reaction Status Date / Time No Known Allergies Allergy Verified 08/31/18 13:58 08/31/18 13:58 Pt presents to the ED for shortness of breath and coughing for one month. Pt had a cold which got better, but has since progressed to coughing. Exam: NAD, lungs CTAB Orders: CXR Pt to proceed to ED for further exam Discharge Disposition - Diagnosis Cough - Referrals - Patient Instructions - Post Discharge Activity
[2018-08-31 14:04] VITALS: BP 118/67; PULSE 100; TEMP 98.7; BMI 32.7
[2018-08-31] MEDS ORDERED: ALBUTEROL SO4 2.5/IPRATROPIUM 0.5 INH SOL 3 ML VIAL.NEB. NEB ONE ×2 (14:34→14:38)
--- NOTE | 2018-08-31 14:41 | PDOC ---
History of Present Illness - General Chief Complaint: Cold Symptoms Stated Complaint: ASTHMA Time Seen by Provider: 08/31/18 13:58 History Source: Patient Exam Limitations: Clinical Condition - History of Present Illness Initial Comments: 08/31/18 14:59 Patient with history of hypertension, hyperlipidemia and insulin-dependent diabetes present with complaint of one month history of persistent dry cough. Patient also reports intermittent shortness of breath and wheezing. Patient denies smoking history or h/o asthma. Patient reports taking [id number] medication and antihistamine for cough with no improvement. Patient denies chest pain, dizziness, numbness or tingling sensation. Patient denies any other symptoms. Timing/Duration: getting worse, other (1 month) Past History - Past Medical History Allergies/Adverse Reactions: Allergies Allergy/AdvReac Type Severity Reaction Status Date / Time No Known Allergies Allergy Verified 08/31/18 13:58 Home Medications: Ambulatory Orders Atorvastatin Ca [Lipitor] 40 mg PO HS 09/19/17 Insulin Glargine,Hum.rec.anlog [Basaglar Kwikpen U-100] 22 unit SQ BID 09/19/17 Losartan Potassium 25 mg PO DAILY 09/19/17 Metformin HCl [Glucophage] 1,000 mg PO BID 09/19/17 Albuterol Sulfate Inhaler - [Ventolin Hfa Inhaler -] 2 inh PO Q6H PRN #1 inh 12/12 Benzonatate [Tessalon Pearls -] 100 mg PO TID PRN #21 capsule 08/31/18 Methylprednisolone [Medrol Dose Antnoi] 4 mg PO ASDIR #21 tablet 08/31/18 COPD: No Diabetes: Yes GI Disorders: Yes (Constipation) HTN: Yes Hypercholesterolemia: Yes - Suicide/Smoking/Psychosocial Hx Smoking History: Never smoked Have you smoked in the past 12 months: No Hx Alcohol Use: Yes (on holidays) Drug/Substance Use Hx: No Substance Use Type: None Review of Systems - Review of Systems Able to Perform ROS?: Yes Is the patient limited Turkmen proficient: No Constitutional: No: Chills, Fever, Malaise, Weakness HEENTM: No: Symptoms Reported, See HPI, Eye Pain, Blurred Vision, Tearing, Recent change in vision, Double Vision, Cataracts, Ear Pain, Ocular Prothesis, Ear Discharge, Nose Pain, Nose Congestion, Tinnitus, Nose Bleeding, Hearing Loss , Throat Pain, Throat Swelling, Mouth Pain, Dental Problems, Difficulty Swallowing, Mouth Swelling, Other Respiratory: Yes: Symptoms reported, See HPI, Cough, Wheezing (intermittent). No: Orthopnea, Shortness of Breath, SOB with Exertion, SOB at Rest, Stridor, Productive cough, Hemoptysis, Other Cardiac (ROS): No: Symptoms Reported, See HPI, Chest Pain, Edema, Irregular Heart Rate, Lightheadedness, Palpitations, Syncope, Chest Tightness, Other ABD/GI: No: Constipated, Diarrhea, Nausea, Vomiting Integumentary: No: Change in Color, Pallor Neurological: No: Headache, Numbness, Paresthesia, Dizziness All Other Systems: Reviewed and Negative *Physical Exam - Vital Signs Last Vital Signs Temp Pulse Resp BP Pulse Ox 98.7 F 100 H 18 118/67 99 08/31/18 14:00 08/31/18 14:00 08/31/18 14:00 08/31/18 14:00 08/31/18 14:00 - Physical Exam Comments: 08/31/18 15:02 GENERAL: Well developed, well nourished. Awake and alert. No acute distress. HEENT: Normocephalic, atraumatic. PERRLA, EOMI. No conjunctival pallor. Sclera are non-icteric. Moist mucous membranes. Oropharynx is clear. NECK: Supple. Full ROM. CARDIOVASCULAR: Regular rate and rhythm. No murmurs, rubs, or gallops. Distal pulses are 2+ and symmetric. PULMONARY: No evidence of respiratory distress. Lungs clear to auscultation bilaterally. No wheezing, rales or rhonchi. ABDOMINAL: Soft. Non-tender. Non-distended. No rebound or guarding. No organomegaly. Normoactive bowel sounds. MUSCULOSKELETAL Normal range of motion at all joints. EXTREMITIES: No cyanosis. No clubbing. No edema. No calf tenderness. SKIN: Warm and dry. Normal capillary refill. No rashes. No jaundice. NEUROLOGICAL: Alert, awake, appropriate. Gait is normal without ataxia. PSYCHIATRIC: Cooperative. Good eye contact. Appropriate mood General Appearance: Yes: Nourished, Appropriately Dressed. No: Apparent Distress Moderate Sedation - Procedure Monitoring Vital Signs: Procedure Monitoring Vital Signs Temperature 98.7 F 08/31/18 14:00 Pulse Rate 100 H 08/31/18 14:00 Respiratory Rate 18 08/31/18 14:00 Blood Pressure 118/67 08/31/18 14:00 O2 Sat by Pulse Oximetry (%) 99 08/31/18 14:00 Medical Decision Making - Medical Decision Making 08/31/18 15:04 Patient with history of hypertension, hyperlipidemia and insulin-dependent diabetes present with complaint of one month history of persistent dry cough. Patient also reports intermittent shortness of breath and wheezing. Patient denies smoking history or h/o asthma. Patient reports taking [id number] medication and antihistamine for cough with no improvement. Patient denies chest pain, dizziness, numbness or tingling sensation. Patient denies any other symptoms. Clinical exam was significant for mild diffuse wheezing in between no rhonchi or rales otherwise unremarkable exam. No peripheral edema on exam. Chest x-ray shows no acute infiltrate but shows cardiomegaly. Results discussed with patient and advised patient to need to follow up with medical representative for cardiomegaly. Patient advised to follow up with primary care as soon as possible for referral to a radiologist. Referral given to oil lease broker to follow-up with persistent cough. Patient is stable for discharge on Tessalon Perles and mental pack as needed for cough with Ventolin inhaler. *DC/Admit/Observation/Transfer Diagnosis at time of Disposition: Cough Hypertension Qualifiers: Hypertension type: essential hypertension Qualified Code(s): I10 - Essential ( primary) hypertension - Discharge Dispostion Disposition: HOME Condition at time of disposition: Stable Decision to Admit order: No - Prescriptions Prescriptions: Albuterol Sulfate Inhaler - [Ventolin Hfa Inhaler -] 2 inh PO Q6H PRN #1 inh PRN Reason: Asthma Benzonatate [Tessalon Pearls -] 100 mg PO TID PRN #21 capsule PRN Reason: Cough Methylprednisolone [Medrol Dose Antoni] 4 mg PO ASDIR #21 tablet - Referrals Referrals: Bryan Echeverria MD [Staff Physician] - - Patient Instructions Printed Discharge Instructions: DI for Asthma -- Adult Additional Instructions: Take medications as prescribed. Follow-up referred pulmonology as soon as possible for cough - Post Discharge Activity
== END 2018-08-31 15:16 | disposition home or self-care (01) ==
LOC: JERFT 13:49
PROC: 3E0F7GC Introduction of Other Therapeutic Substance into Respiratory Tract, Via Natural or Artificial Opening (ICD-10-PCS; principal; 2018-08-31)
DX: J45.909 Unspecified asthma, uncomplicated (principal); I10 Essential (primary) hypertension; E11.9 Type 2 diabetes mellitus without complications; Z79.4 Long term (current) use of insulin; E78.5 Hyperlipidemia, unspecified
CPT/HCPCS: 71046-TC-FY; 94640; 99281-25

== ENCOUNTER 2021-11-06 10:19 | Emergency (ER) | payer OTHER ==
[2021-11-06 10:31] VITALS: BP 149/90; TEMP 98.8; BMI 31.8
[2021-11-06] MEDS ORDERED: SODIUM CHLORIDE 1,000 ML IV STA (10:58)
[2021-11-06] MEDS ORDERED: ACETAMINOPHEN 1000 MG/100 ML BAG IVPB ONE (10:58)
[2021-11-06] MEDS ORDERED: ACETAMINOPHEN INJECTION 100 ML IVPB ONE (11:19)
[2021-11-06 12:12] LABS: EPI CELLS 25 /uL (0-25.1); HYALINE CASTS 2 /uL (0-3.1); URINE APPEARANCE CLEAR; URINE BACTERIA 1261 /uL (0-1359); URINE BILIRUBIN NEGATIVE (NEGATIVE); URINE COLOR YELLOW; URINE GLUCOSE (UA) NEGATIVE (NEGATIVE); URINE KETONE NEGATIVE (NEGATIVE); URINE LEUK ESTERASE 2+ (NEGATIVE); URINE NITRITE NEGATIVE (NEGATIVE); URINE PROTEIN NEGATIVE (NEGATIVE); URINE RBC 9 /uL (0-23.9); URINE UROBILINOGEN 0.2 mg/dL (0.2-1.0); URINE WBC 107 /uL (0-25.8)
[2021-11-06 12:16] LABS: BASO % 0.6 % (0-2.0); HEMATOCRIT 39.4 % (32.4-45.2); HEMOGLOBIN 13.1 GM/dL (10.7-15.3); LYMPH % 31.9 % (8-40); MCH 28.1 pg (25.7-33.7); MCHC 33.3 g/dl (32.0-36.0); MEAN CELL VOLUME 84.2 fl (80-96); MEAN PLT VOLUME 8.1 fl (7.5-11.1); MONO % 5.8 % (3.8-10.2); NEUT % 59.7 % (42.8-82.8); PLATELET COUNT 255 10^3/uL (134-434); RBC 4.68 M/mm3 (3.60-5.2); RDW 13.5 % (11.6-15.6); WHITE BLOOD COUNT 6.2 K/mm3 (4.0-10.0)
[2021-11-06 12:40] LABS: CALCIUM 9.6 mg/dL (8.5-10.1)
[2021-11-06 12:41] LABS: ALBUMIN 3.8 g/dl (3.4-5.0)
[2021-11-06 12:43] LABS: CREATININE 0.7 mg/dL (0.55-1.3)
[2021-11-06 12:45] LABS: TOT PROT 7.5 g/dl (6.4-8.2)
[2021-11-06 14:31] VITALS: PULSE 88
== END 2021-11-06 14:31 | disposition home or self-care (01) ==
LOC: JER 10:19
PROC: 3E033GC Introduction of Other Therapeutic Substance into Peripheral Vein, Percutaneous Approach (ICD-10-PCS; principal; 2021-11-06)
DX: N30.00 Acute cystitis without hematuria (principal)
CPT/HCPCS: 36415; 74177-TC; 80053; 81003; 83690; 85025; 87086; 93005; 93010; 99285-25; Q9967